=== PATIENT | female | born 1965 | race Caucasian/White ===

== ENCOUNTER → 2019-07-18 12:04 | Outpatient (BNVA) | payer OTHER, SELFPAY | PROVIDERS: Family Provider Family Medicine; Visit Provider Emergency Medicine | DX: J11.1 Influenza due to unidentified influenza virus with other respiratory manifestations (principal) | CPT/HCPCS: 87804 ==

== ENCOUNTER 2019-08-12 16:02 | Outpatient (CLI) | payer OTHER, SELFPAY ==
--- NOTE | 2019-08-12 | XR_ITS ---
WS: [id number] CHEST 2 VIEWS HISTORY: ASTHMA EXACERBATION COMPARISON: 08/12/2013 Lungs: New bronchial and interstitial thickening in the lower lung samuels. Minimal change since the p rior study. No consolidation or fluid overload. No pleural effusion. Cardiac size: Normal. Mediastinum/Aorta: Normal mediastinum. Bones: Normal. XR/XR chest 2V* [id number] IMPRESSION: Mild interstitial and bronchial wall thickening in the lower lung samuels. New s sindhu 08/12/2013. Probably on the basis of mild pneumonitis or bronchitis.
== END 2019-08-12 16:03 | disposition home or self-care (01) ==
PROVIDERS: Family Provider Family Medicine; PCP Family Medicine; Visit Provider Family Medicine
DX: Z01.89 Encounter for other specified special examinations (principal)

== ENCOUNTER 2019-09-27 12:39 | Outpatient (CLI) | payer OTHER, SELFPAY ==
[2019-09-27 13:06] LABS: Basophils # 0.1 10^3/uL (0.0-0.1); Basophils % 0.8 %; Eosinophils # 0.2 10^3/uL (0.0-0.8); Eosinophils % 2.9 %; Hematocrit 44.7 % (37.0-47.0); Hemoglobin 13.9 g/dL (11.5-15.3); Lymphocytes # 1.7 10^3/uL (0.8-4.8); Lymphocytes % 22.7 %; Mean Corpuscular HGB Conc 31.1 g/dL (30.0-36.0); Mean Corpuscular Hemoglobin 28.5 pg (28.0-34.0); Mean Corpuscular Volume 91.6 fL (81-99); Mean Platelet Volume 10.9 fL (7.4-10.4); Monocytes # 0.6 10^3/uL (0.2-0.9); Monocytes % 7.3 %; Nucleated Red Blood Cells % 0 %; Platelet Count 317 10^3/cmm (130-400); Red Blood Count 4.88 10^6/uL (4.1-5.3); Red Cell Distribution Width 13.4 % (12.1-15.1); White Blood Count 7.6 10^3/uL (4.0-10.0)
[2019-09-28 14:41] LABS: Cat Dander (E1) Ige <0.10 kU/L; Cat Dander Class 0; Dog Dander (E5) Ige <0.10 kU/L; Dog Dander Class 0; Immunoglobulin E 57 kU/L (<OR=114)
[2019-09-29 16:02] LABS: Bermuda Class 0; Bermuda Grass (G2) Ige <0.10 kU/L; Johnson Grass (G10) Ige <0.10 kU/L; Johnson Grass Cl 0; June Grass Class 0/1; June Grass(Kentucky Blue) (G8) 0.28 kU/L; Meadow Fescue (G4) Ige 0.34 kU/L; Meadow Fescue Class 0/1; Orchard Grass (Cocksfoot) (G3) 0.15 kU/L; Perennial Rye Grass (G5) Ige 0.28 kU/L; Perennial Rye Grass Class 0/1; Sweet Vernal Class 0/1; Sweet Vernal Grass (G1) Ige 0.26 kU/L; Timothy Grass (G6) Ige 0.23 kU/L; Timothy Grass Class 0/1
[2019-10-01 15:26] LABS: D. Farinae Class 0/1; Dermatophagoides Class 0/1; Dermatophagoides Farinae (D2) 0.13 kU/L; Dermatophagoides Pteronyssinus 0.14 kU/L; House Dust (Greer) (H1) Ige <0.10 kU/L; House Dust (Hollister- Stier) <0.10 kU/L; House Dust Class 0
== END 2019-09-27 12:40 | disposition home or self-care (01) ==
PROVIDERS: Family Provider Family Medicine; PCP Family Medicine; Visit Provider Internal Medicine Critical Care Medicine
DX: J45.909 Unspecified asthma, uncomplicated (principal)
CPT/HCPCS: 36415; 82785; 85025; 86003

== ENCOUNTER 2019-10-05 12:31 | Outpatient (CLI) | payer OTHER, SELFPAY ==
--- NOTE | 2019-10-05 | MR_ITS ---
WS: [id number] MRI NECK WITH CONTRAST TECHNIQUE: Noncontrast axial T1, axial T2 FSE fat sat, coronal T2 fat sat, coronal T1, coronal T1 fat sat, sagittal T2 fat sat, plus contrast enhanced coronal, sagittal, and axial T1 fat sat images obta ined. CLINICAL INFORMATION: SOFT TISSUE MASS COMPARISON: Neck ultrasound April 19, 2019 FINDINGS: Palpable markers lower neck bilaterally. No evidence of pathologic subcutaneous mass or lesion in the lower neck bilaterally. No abnormal fluid collections. No lymphadenopathy in the area of concern. In the right lower neck deep to the palpable marker are a few prominent vessels and external jugular ve in. This may correspond to the palpable abnormality. Similar less prominent vessels on the left side. Submandibular glands are normal. Normal parotid glands. A few prominent submandibular lymph nodes not pathologically enlarged likely reactive largest in the left measuring 9 mm. No cervical lymphadenopa thy. Visualized posterior nasopharynx is normal. Dental artifact degrades images in the posterior mookie opharynx. Normal palatine tonsils. No evidence of supraglottic or glottic mass. Normal posterior cassandra a. Mild disc bulging cervical spine at C5-C6. MR/MR orbit face neck wo/w* [id number] IMPRESSION: 1. No evidence of pathologic mass or lesion in the area of concern lower neck bilaterally. A few prominent vessels in these areas, external jugular vein, nor mal in appearance. 2. No cervical lymphadenopathy. A few prominent submandibular lymph nodes like ly reactive. 3. Normal salivary glands. 4. No evidence of supraglottic or glottic mass.
== END 2019-10-05 12:32 | disposition home or self-care (01) ==
LOC: RADSHAW 12:40
PROVIDERS: Family Provider Family Medicine; PCP Family Medicine; Visit Provider Family Medicine
DX: R22.1 Localized swelling, mass and lump, neck (principal)
CPT/HCPCS: 70543; A9579

== ENCOUNTER 2019-12-01 09:20 | Outpatient (CLI) | payer OTHER, SELFPAY ==
--- NOTE | 2019-12-01 09:28 | CT_ITS ---
WS: [id number] CT ABDOMEN AND PELVIS WITH CONTRAST HISTORY: LLQ PAIN ACUTE TECHNIQUE: Imaging performed of the abdomen and pelvis with IV contrast. Single phase imaging of the abdomen. Coronal and sagittal reformats are submitted. All CT scans at [facility] use at least one of these dose optimization techniques: automated exposure control; mA and/or kV adjustment per patient size (includes targeted exams where dose is matched to clinical indication); or iterativ e reconstruction. IV CONTRAST: Omnipaque 300; 95 mL IV. Oral contrast: No DLP: 1126.37 mGycm COMPARISON: 12/10/2015 Lower thorax: Subsegmental atelectasis at the LEFT lung base. Heart is normal size. No hiatal hernia. Liver/biliary system: Stable 5 mm cyst superior liver. No hepatic mass or bile duct dilatation. Gallbladder: Status post cholecystectomy. Pancreas: Normal. Spleen: Normal. Adrenal glands: Normal. Right kidney: Normal. Left kidney: Normal. Aorta: Normal. Lymphadenopathy: Subcentimeter retroperitoneal lymph nodes. No adenopathy. Free fluid: None. GI tract: The appendix is not identified. Mild fluid distention of the colon. Focal area of moderate inflammation involving the descending colon at the level of the iliac crest with adjacent diverticula . Most consistent for an episode of acute diverticulitis. Epiploic appendagitis may appear similar. T here are numerous sigmoid diverticula with diffuse chronic wall thickening of the sigmoid. Minimal fl uid distention of the proximal small bowel. No obstructive pattern. Abdominal wall: Fat-containing umbilical hernia. Pelvis: Normal. Bones: Degenerative disc disease at L5-S1. CT/CT abdomen pelvis w con* [id number] IMPRESSION: 1. Acute descending colon diverticulitis. No abscess. Differential includes se lf limiting epiploic appendagitis. 2. Chronic sigmoid diverticulosis. 3. No free air or ascites. 4. Prior cholecystectomy.
[2019-12-01] MEDS: iohexol 300 mg/mL 100 mL Btl IV (10:18)
== END 2019-12-01 09:21 | disposition home or self-care (01) ==
LOC: RADWPI 09:26
PROVIDERS: Family Provider Family Medicine; PCP Family Medicine; Visit Provider Family Medicine
DX: R10.32 Left lower quadrant pain (principal); K57.92 Diverticulitis of intestine, part unspecified, without perforation or abscess without bleeding; K57.30 Diverticulosis of large intestine without perforation or abscess without bleeding
CPT/HCPCS: 74177; Q9967

== ENCOUNTER 2020-03-06 12:00 | Outpatient (CLI) | payer OTHER, SELFPAY | END 2020-03-06 12:01 | disposition home or self-care (01) | LOC: SLEEP 03-07 15:31 | PROVIDERS: PCP Family Medicine; Visit Provider Internal Medicine Critical Care Medicine | DX: G47.10 Hypersomnia, unspecified (principal) | CPT/HCPCS: G0399 ==

== ENCOUNTER → 2020-04-21 16:51 | Outpatient (BNVA) | payer OTHER, SELFPAY | PROVIDERS: PCP Family Medicine; Visit Provider Emergency Medicine | DX: R68.89 Other general symptoms and signs (principal); J02.9 Acute pharyngitis, unspecified | CPT/HCPCS: 87071; 87400; 87880 ==

== ENCOUNTER 2020-05-05 06:29 | Day surgery (SDC) | payer OTHER, SELFPAY ==
[2020-05-05] MEDS: sodium chloride 0.9% 1,000 ML 30 ML IV (07:05)
[2020-05-05 07:08] LABS: Glucose Point of Care 103 mg/dL (70-110)
--- NOTE | 2020-05-05 07:20 | PM.OPSURHP ---
Providers/Chief Complaint Admitting Physician: Tip Becker Primary Care Provider: Marcellus Snowden MD Chief Complaint: colonoscopy History of Present Illness Adriana Echeverria is a 55 year old female who presents today for a screening colonoscopy. She has a uncle who had colon cancer but otherwise has no other family members with a history of colon cancer. I saw her in my office earlier this year and we discussed the risks and alternatives of a colonoscopy at that time. Review of Systems General: Reports: 10 or more systems reviewed and unremarkable except in HPI and below Const: Denies: fever(s) Card: Denies: chest pain or irregular heart rhythm Resp: Denies: dyspnea Medications/Allergies Home Medications Medication Instructions Recorded Confirmed Last Taken Type albuterol sulfate 90 mcg/actuation 2 inh INHALATION Q4H PRN each 07/18/19 05/05/20 05/04/20 History breath activated powder inhaler,sensor escitalopram oxalate 20 mg tablet 20 mg PO DAILY 07/18/19 05/05/20 05/04/20 History levothyroxine 100 mcg tablet 100 mcg PO DAILY 07/18/19 05/05/20 05/05/20 History montelukast 10 mg tablet 10 mg PO DAILY 07/18/19 05/05/20 05/04/20 History simvastatin 40 mg tablet 40 mg PO DAILY 07/18/19 05/05/20 05/04/20 History metformin 500 mg tablet 500 mg PO DAILY 09/27/19 05/05/20 05/04/20 History azelastine 137 mcg (0.1 %) nasal See Rx Instructions .ROUTE 02/22/20 05/05/20 05/04/20 Rx spray aerosol .COMPLEX #30 ml tiotropium bromide 2.5 See Rx Instructions .ROUTE 02/22/20 05/05/20 05/04/20 Rx mcg/actuation mist for inhalation .COMPLEX #4 gm Symbicort 160 mcg-4.5 See Rx Instructions .ROUTE 04/21/20 05/05/20 05/04/20 Rx mcg/actuation HFA aerosol inhaler .COMPLEX #10.2 g NS tizanidine 4 mg PO BEDTIME 05/03/20 05/05/20 05/04/20 History Allergies Allergy/AdvReac Type Severity Reaction Status Date / Time No Known Allergies Allergy Verified 05/05/20 06:47 PFSH PFSH: Medical History Asthma Depression H/O: hypothyroidism Hyperlipidemia Surgical History H/O sinus surgery Previous back surgery S/P cholecystectomy Social History Smoking and tobacco status: never smoked Second hand smoke exposure: No Alcohol intake: never Lives independently: Yes Household members: spouse Housing: House Marital status: Current occupational status: employed Current occupation: Teacher Current occupational exposures/hazards: No Pets and animals: Yes History of recent travel: No Current gender identity: Female Dietary Habits: Caffeine: Yes Caffeine intake frequency: carbonated beverages, coffee and tea Vital Signs Weight: Weight last 48 hrs Weight 200 lb Physical Exam Const: COMMON NORMALS: no acute distress and patient oriented x3 GENERAL APPEARANCE: cooperative, comfortable and well developed HENMT: COMMON NORMALS: normocephalic and moist oral mucous membranes HEAD & SCALP: normocephalic Chest: COMMONS NORMALS: normal inspection of the chest Resp: COMMON NORMALS: normal respiratory effort and clear to auscultation bilaterally AUSCULTATION: clear to auscultation bilaterally Cardio: COMMON NORMALS: regular rate, regular rhythm, No gallops present (Cardio), No murmurs present (Cardio) and No rub (Cardio) RATE: regular rate RHYTHM: regular rhythm Extremity: COMMON NORMALS: normal to inspection Neuro: COMMON NORMALS: patient oriented x3 and no focal motor deficits Skin: COMMON NORMALS: no rashes or lesions noted GENERAL SKIN EXAM: no rashes or lesions noted A&P Assessment and plan (1) Colon cancer screening: We discussed the risks of bleeding, perforation, and sedation. She and her had no further questions and wished to proceed. Status: Acute Coding Level of Care Code Acute Manager Android for [facility] Fwd Diagnoses Colon cancer screening Z12.11
--- NOTE | 2020-05-05 07:22 | ANES.PREANE2 ---
Pre-Anesthetic Assessment Pre-Anesthetic Assessment: Height/Weight: Height 1.6 m Weight 90.718 kg Proposed Procedure: Operation Date: 05/05/20 07:30 Proposed Procedures p Colonoscopy Z12.11 [id number](Not Applicable) - Tip Becker MD Was Beta Nick taken within 24 hours: N/A Last intake: Intake Last Liquid Date 05/04/20 Last Liquid Time 20:00 Last Solid Date 05/03/20 Last Solid Time 20:00 Social: Social History: No alcohol and No tobacco Exam: Pre-Anes Outpt Exam: alert, oriented x 3, clear to auscultation bilaterally and regular rate & rhythm Airway: Submandibular: WNL Cervical ROM: WNL MP: 2 Dentition: Full Pulmonary: Pulmonary: Asthma CV/HEM: CV/HEM: None reported : : None reported Hepatic: Hepatic: None reported GI: GI: None reported Metabolic: Metabolic: DM Musc/skel: Musc/skel: None reported Anesthetic Plan: ASA status: 2 Anesthesia: MAC Risk of > 500 ml blood loss (7ml/kg in children): No Meds/Allergies Current Medications: Current Medications Generic Name Dose Route Start Last Admin Trade Name Freq PRN Reason Stop Dose Admin Sodium Chloride 1,000 mls @ 30 ml s/hr 05/05/20 07:00 05/05/20 07:05 Sodium Chloride 0.9% IV 05/06/20 06:59 30 mls/hr .Q24H WAQAS Administration PFSH Anesthesia PFSH: Medical History (Updated 05/05/20 @ 07:23 by Tip Becker MD) Asthma Depression H/O: hypothyroidism Hyperlipidemia Surgical History H/O sinus surgery Previous back surgery S/P cholecystectomy Social History Smoking and tobacco status: never smoked Second hand smoke exposure: No Alcohol intake: never Lives independently: Yes Household members: spouse Housing: House Marital status: Current occupational status: employed Current occupation: Teacher Current occupational exposures/hazards: No Pets and animals: Yes History of recent travel: No Current gender identity: Female Data Anesthesia Other Labs: Laboratory Results - last 48 hr 05/05/20 07:02 POC Glucose 103 Cardiac Studies: No Data to Display
[2020-05-05 07:47] VITALS: BP 98/63; PULSE 72; RESP 18; TEMP 36.2; O2SAT 96
--- NOTE | 2020-05-05 08:06 | ANE.PACU2 ---
Inpatient post-anesthesia follow up: Airway intact: Yes Vital signs: Temperature 97.2 F Pulse Rate 72 Respiratory Rate 18 Blood Pressure 98/63 Pulse Oximetry 96 Oxygen Delivery Me thod Room Air Oxygen Flow Rate Fraction of Inspir ed Oxygen Hydration adequate: Yes Nausea and vomiting: No Pain level: 1 Mental status: Baseline
== END 2020-05-05 08:18 | disposition home or self-care (01) ==
PROVIDERS: PCP Family Medicine; Visit Provider Family Medicine
PROC: 0DJD8ZZ Inspection of Lower Intestinal Tract, Via Natural or Artificial Opening Endoscopic (ICD-10-PCS; CPT 45378; principal; 2020-05-05 07:30)
DX: Z12.11 Encounter for screening for malignant neoplasm of colon (principal); Z80.0 Family history of malignant neoplasm of digestive organs; J45.909 Unspecified asthma, uncomplicated; F32.9 Major depressive disorder, single episode, unspecified; E03.9 Hypothyroidism, unspecified; E78.5 Hyperlipidemia, unspecified; E11.9 Type 2 diabetes mellitus without complications
CPT/HCPCS: 12345; 36416; 45378; 82962; J2704; J7030

== ENCOUNTER 2022-11-25 11:52 | Oncology outpatient (recurring) (ONCR) | payer OTHER, SELFPAY ==
[2022-11-25 12:57] VITALS: BP 141/88; PULSE 92; TEMP 36.6; O2SAT 95
[2022-11-25 13:30] VITALS: BP 152/91; PULSE 85; TEMP 36.6; O2SAT 94
== END 2022-11-29 23:59 | disposition home or self-care (01) ==
PROVIDERS: PCP Family Medicine; Visit Provider Internal Medicine Pulmonary Disease
DX: J45.50 Severe persistent asthma, uncomplicated (principal); Z79.899 Other long term (current) drug therapy
CPT/HCPCS: 96372

== ENCOUNTER 2023-04-03 08:44 | Outpatient (CLI) | payer OTHER, SELFPAY ==
--- NOTE | 2023-04-03 08:55 | CT_ITS ---
WS: [id number] CT ABDOMEN PELVIS TECHNIQUE: Contrast-enhanced CT of the abdomen and pelvis with coronal and sagittal reformatted image s. CLINICAL INFORMATION: LLQ pain COMPARISON: None. DLP: 851.[address] scans at [facility] use at least one of these dose optimization techniques: automated e xposure control; mA and/or kV adjustment per patient size (includes targeted exams where dose is matc hed to clinical indication); or iterative reconstruction. FINDINGS: Thickening with inflammatory stranding and edema sigmoid colon LEFT lower quadrant compatible with [facility] [place] diverticulitis. Few small surrounding locules of air with a small amount of surrounding fluid and enhancement. Small mount of fluid in the LEFT lower pelvis. Findings compatible with microperforatio n. No drainable abscess or fluid collection. Mild diffuse fatty filtration of the liver. Cholecystectomy clips. Normal GE junction. Tiny incidenta l hepatic cysts. Slight subsegmental atelectasis in the lung bases. Normal pancreatic parenchymal enh ancement. Normal portal vein and splenic vein. Adrenal glands are normal. No hydronephrosis in either kidney. Normal caliber abdominal aorta. Celiac and SMA are patent. Disc space narrowing worse at L5- S1. IMPRESSION: 1. Acute diverticulitis LEFT lower quadrant with microperforation and a small amount of surrounding fluid. Recommend interval follow-up after therapy. 2. No drainable fluid collection or abscess. 3. No other acute findings. Notified Marcellus Snowden MD at 04/03/2023 10:51 AM.
[2023-04-03] MEDS: iohexol 350 mg/mL 500 mL Btl (per mL) IV (09:02)
[2023-04-03] MEDS: iohexol 350 mg/mL 500 mL Btl (per mL) PO (09:02)
== END 2023-04-03 08:45 | disposition home or self-care (01) ==
LOC: RAD 08:44
PROVIDERS: PCP Family Medicine; Visit Provider Family Medicine
DX: K57.92 Diverticulitis of intestine, part unspecified, without perforation or abscess without bleeding (principal); R10.32 Left lower quadrant pain
CPT/HCPCS: 74177; Q9967

== ENCOUNTER 2023-04-14 16:27 | Outpatient (CLI) | payer OTHER, SELFPAY ==
--- NOTE | 2023-04-14 16:30 | CT_ITS ---
WS: [id number] CT ABDOMEN AND PELVIS WITH CONTRAST HISTORY: ABDOMINAL PAIN/ F/U DIVERTICULITIS TECHNIQUE: Imaging performed of the abdomen and pelvis with IV contrast. Single phase imaging of the abdomen. Coronal and sagittal reformats are submitted. All CT scans at [facility] use at [facility] one of these dose optimization techniques: automated exposure control; mA and/or kV adjustment per patient size (includes targeted exams where dose is matched to clinical indication); or iterative re construction. IV CONTRAST: Omnipaque 350; 100 mL IV. Oral contrast: Yes. DLP: 797.38 mGy.cm COMPARISON: 04/03/2023 Lower thorax: Lung bases are clear. Heart is normal size. No hiatal hernia. Liver/biliary system: Normal size liver. There are a few scattered low-attenuation masses which are p robably cysts. The liver is enlarged. No bile duct dilatation. Normal portal vein. Gallbladder: Cholecystectomy. Pancreas: Normal size pancreas and pancreatic duct. No adjacent inflammation. Spleen: Normal size spleen. No mass or infarct. Adrenal glands: Normal. Right kidney: Normal. Left kidney: Normal. Aorta: Normal. Lymphadenopathy: Small retroperitoneal lymph nodes below the level of the renal veins are reidentifie d. These lymph nodes are slightly smaller in size as compared to the prior study. Largest lymph node 8 mm. Free fluid: None. GI tract: Recently described acute distal colonic diverticulitis has moderately improved. There is st ill wall thickening with narrowing of the lumen and numerous diverticula and pericolonic edema. No ab scess. No free air. Fluid adjacent to the colon has resolved. Numerous diverticula in the descending and sigmoid colon. No obstruction. Normal appendix. Abdominal wall: Fat containing umbilical hernia. Pelvis: Prior hysterectomy. Negative urinary bladder. Bones: Mild disc space narrowing and desiccation at L5-S1. IMPRESSION: 1. Moderate interval improvement of the distal colon acute diverticulitis since 04/03/2023. There is still narrowing of the lumen and mild acute inflammatory changes. No abscess or free air. The free fl uid has resolved. 2. There are small adjacent lymph nodes and retroperitoneal lymph nodes which may be reactive. If co lonoscopy has not been recently performed this should be obtained to exclude an underlying neoplasm b ut thought less likely. 3. Significant chronic diverticulosis in the distal colon.
[2023-04-14] MEDS: iohexol 350 mg/mL 500 mL Btl (per mL) IV (17:37)
[2023-04-14] MEDS: iohexol 350 mg/mL 500 mL Btl (per mL) PO (17:37)
== END 2023-04-14 16:28 | disposition home or self-care (01) ==
PROVIDERS: PCP Family Medicine; Visit Provider Family Medicine
DX: K57.32 Diverticulitis of large intestine without perforation or abscess without bleeding (principal); K57.30 Diverticulosis of large intestine without perforation or abscess without bleeding
CPT/HCPCS: 74177; Q9967

== ENCOUNTER → 2024-11-29 08:36 | Outpatient (BNVA) | payer OTHER, SELFPAY | PROVIDERS: PCP Family Medicine; Visit Provider Podiatrist Foot & Ankle Surgery | DX: M79.672 Pain in left foot (principal); M72.2 Plantar fascial fibromatosis | CPT/HCPCS: 73630 ==

== ENCOUNTER 2025-01-09 10:20 | Inpatient (IN) | payer OTHER, SELFPAY ==
[2025-01-09] VITALS (9 sets, daily range): BP systolic 98–143; BP diastolic 65–89; PULSE 64–88; RESP 16–19; TEMP 36.8; O2SAT 95–98
--- OUTSIDE RECORDS SUMMARY | 2025-01-09 10:23 | XMS_ITS | Encounter Summary ---
Author Organization [facility] Address [address] [place] [address] Care Team Providers Care Department Store Manager Name Role Phone Unavailable Primary Care Provider Unavailabl e Reason for Referral * Outpatient Services (Routine) - Closed Specialty Diagnoses / Procedures Referred By Contac t Referred To Contact Diagnoses Low back pain Sciatica Procedures MRI LUMBAR WO CONTRAST Marcellus Snowden MD [address] [address] Phone: tel: fax: Referral ID Status Reason Start Date Expiration Date Visits Re quested Visits Authorized [id number] Closed 10/14/2012 11/14/2013 1 1 Encounter Details Date Type Department Care Team (Late st Contact Info) Description 10/14/2012 Ancillary Orders [facility] Centralized Scheduling [address] [facility] [address] [place] [address] Marcellus Snowden MD [address] [address] Low back pain (Primary Dx); Sciatica Social History Tobacco Use Types Packs/Day Years Used Date Smoking Tobacco: Never Assessed Comments Unknown Sex and Gender Information Value Date Recorded Sex Assigned at Not on file 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 Exam: MRI LUMBAR WO CONTRAST Date/Time of Exam: October 23, 2012 10:32:00 AM Reason For Exam: Lumbago. Technique: MRI of the lumbar spine was performed without the administration of intravenous contrast. No comparison study is available. No significant focal bony lesion or acute fracture is seen. Alignment is normal. L1-L2 and L2-L3: No significant abnormality. L3-L4: Left foraminal annular tear. L4-L5: Tiny disc bulge and posterior annular tear. L5-S1: Mild disc height loss, moderate degenerative endplate changes with a tiny disc bulge. Status post left laminotomy. Impression: Postoperative changes but no spinal stenosis or nerve root compression. ama - uploaded from [email or web address] - Narrative Procedure Note Alvin Cruz MD - 10/23/2012 IMPRESSION IMPRESSION: See report below. Exam: MRI LUMBAR WO CONTRAST Date/Time of Exam: October 23, 2012 10:32:00 AM Reason For Exam: Lumbago. Technique: MRI of the lumbar spine was performed without the administration of intravenous contrast. No comparison study is available. No significant focal bony lesion or acute fracture is seen. Alignment is normal. L1-L2 and L2-L3: No significant abnormality. L3-L4: Left foraminal annular tear. L4-L5: Tiny disc bulge and posterior annular tear. L5-S1: Mild disc height loss, moderate degenerative endplate changes with a tiny disc bulge. Status post left laminotomy. Impression: Postoperative changes but no spinal stenosis or nerve root compression. ama - uploaded from [email or web address] - us Marcellus Snowden MD MR ORDERABLES Final Result documented in this encounter Visit Diagnoses Diagnosis Low back pain- Primary Lumbago Sciatica Low back pain Lumbago Sciatica documented in this encounter
--- OUTSIDE RECORDS SUMMARY | 2025-01-09 10:23 | XMS_ITS | Clinical Summary ---
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 Gender Identity Not on file Sexual Orientation Not on file Plan of Treatment Health Maintenance Due Date Last Done Comments DTAP/TDAP/TD VACCINES (1 - Tdap) 02/21/1983 HPV/Cotest (21-29) 02/21/1985 CERVICAL CANCER SCREENING 02/21/1994 HPV/Cotest (30-65) 02/21/1994 PAP SMEAR 02/21/1994 BREAST CANCER SCREENING 2004 COLORECTAL SCREENING 02/21/2009 Colorectal Cancer Screening 02/21/2009 FIT-DNA Q 3 years 02/21/2009 FIT/FOBT Q 1 year 02/21/2009 Flex Sig/CT Colonography Q 5 years 02/21/2009 ZOSTER VACCINE (1 of 2) 02/21/2014 INFLUENZA VACCINE (#1) 2024 RSV VACCINE (60+ or ) (1 - 1-dose 75+ series) 02/21/2039 HEPATITIS B VACCINES Aged Out No long er eligible based on patient's age to complete this topic Insurance [employer]
--- OUTSIDE RECORDS SUMMARY | 2025-01-09 10:23 | XMS_ITS | Clinical Summary ---
Author Organization [facility] Address [address] [place]: [place] [address] Care Team Providers Care Patient Monitor Name Role Phone Marcellus Snowden MD Primary Care Provider [phone] Allergies Active Allergy Reactions Criticality Noted Date Comments Metformin Diarrhea Medium 05/14/2023 Medications albuterol sulfate 90 mcg/actuation metered powder inhaler Q6H 2 Active montelukast (SINGULAIR) 10 mg tablet daily. 3 Active simvastatin (ZOCOR) 40 mg tablet Take 40 mg by mouth daily at bedtime. 3 Active budesonide (PULMICORT RESPULE) 0.5 mg/2 mL Suspension for Nebulization INHALE THE CONTENTS OF 1 VIAL VIA NEBULIZER TWICE DAILY Active budesonide-formo teroL (SYMBICORT) 160-4.5 mcg/actuation HFA Aerosol Inhaler INHALE 2 PUFFS BY MOUTH EVERY 12 HOURS Active escitalopram oxalate (LEXAPRO) 20 mg tablet Take 1 Tablet by mouth daily. Active levothyroxine 100 mcg tablet TAKE 1 TABLET BY MOUTH EVERY 6 DAYS, THEN TAKE 1.5 TABLETS 1 DAY OF THE WEEK; needs yearly checkup and TSH 3 Active mepolizumab (Nucala) 100 mg/mL Syringe Inject 1 mL every month by subcutaneous route. Active tiotropium (SPIRIVA RESPIMAT) 2.5 mcg/actuation Mist INHALE 2 PUFFS BY MOUTH EVERY MORNING Active tiZANidine (ZANAFLEX) 4 mg Tablet Take 4 mg by mouth daily at bedtime. 3 Active Active Problems No known active problems Immunizations Immunization Administration Dates Next Due ([employer])(12 YR UP) COVID-19 VACCINE - EMERGENCY USE AUTHORIZATION, MRNA, [id number](PF) 30 MCG/0.3 ML IM SUSP 01/15/2021,12/25/2020 Family History Medical History Relation Name Comments Colon Cancer Other Relation Name Status Comments Other Social History Tobacco Use Types Packs/Day Years Used Date Smoking Tobacco: Never Smokeless Tobacco: Never Tobacco Cessation:Counseling Given: Not Answered Alcohol Use Standard Drinks/Week Comments Not Currently 0 (1 standard drink = 0.6 oz pur e alcohol) Comments Unknown Sex and Gender Information Value Date Recorded Sex Assigned at Female 08/20/2023 12:25 PM CDT Legal Sex Female 5:18 PM INSURANCE SALESMAN Gender Identity Female 08/20/2023 12:25 PM CDT Sexual Orientation Straight 08/20/2023 12 :25 PM CDT Last Filed Vital Signs Vital Sign Reading Time Taken Comments Blood Pressure 118/76 08/06/2023 11:35 AM INSURANCE SALESMAN Pulse 76 08/06/2023 11:35 AM INSURANCE SALESMAN Temperature - - Respiratory Rate 16 08/06/2023 11:35 AM INSURANCE SALESMAN Oxygen Saturation 97% 08/06/2023 11:35 AM INSURANCE SALESMAN Inhaled Oxygen Concentration - - Weight 90.7 kg (200 lb) 08/04/2023 8:10 AM INSURANCE SALESMAN Height 160 cm (5' 3 ) 08/04/2023 8:10 AM INSURANCE SALESMAN Body Mass Index 35.43 08/04/2023 8:10 AM INSURANCE SALESMAN Plan of Treatment Health Maintenance Due Date Last Done Comments HPV/Cotest (21-29) 02/21/1985 CERVICAL CANCER SCREENING 02/21/1994 HPV/Cotest (30-65) 02/21/1994 PAP SMEAR 02/21/1994 BREAST CANCER SCREENING 2004 FIT-DNA Q 3 years 02/21/2009 FIT/FOBT Q 1 year 02/21/2009 Flex Sig/CT Colonography Q 5 years 02/21/2009 ZOSTER VACCINE (2 of 2) 10/05/2021 08/10/2021 COVID-19 Vaccine (3 - 2023-2 5 season) 2024 01/15/2021, 12/25/2020 RSV VACCINE (60+ or ) (1 - Risk 60-74 years 1-dose series) 2024 INFLUENZA VACCINE (#1) 2024 12/18/2020 DTAP/TDAP/TD VACCINES (2 - T d or Tdap) 10/05/2028 10/05/2018 COLORECTAL SCREENING 08/05/2033 08/06/2023, 08/06/2023 Colorectal Cancer Screening 08/05/2033 HEPATITIS B VACCINES Aged Out No long er eligible based on patient's age to complete this topic Procedures Procedure Name Priority Date/Time Associated Diagnosis Comments COLONOSCOPY REPORT 08/06/2023 11 :27 AM INSURANCE SALESMAN from Last 3 Months or Most Recently Relevant to Health Maintenance Results * COLONOSCOPY REPORT (08/06/2023 11:27 AM INSURANCE SALESMAN) Narrative Procedure Note Kurtis Manuel MD - 08/06/2023 11:[address] [facility] GI Patient Name: Itzel Echeverria Procedure Date: 08/06/2023 Date of : 1965 Admit Type: Outpatient Age: 58 Attending MD: Kurtis Manuel , , Procedure: Colonoscopy Indications: Follow-up of diverticulitis Providers: Kurtis Manuel Referring MD: Marcellus Snowden MD Medicines: Fentanyl 75 micrograms IV, Midazolam 5 mg IV Complications: No immediate complications. Procedure: After I obtained informed consent, the scope was passed under direct vision. Throughout the procedure, the patient's blood pressure, pulse, and oxygen saturations were monitored continuously. The Colonoscope was introduced through the anus and advanced to the cecum, identified by appendiceal orifice and ileocecal valve. The colonoscopy was performed without difficulty. The patient tolerated the procedure well. The quality of the bowel preparation was evaluated using the BBPS ([place] Bowel Preparation Scale) with scores of: Right Colon = 3, Transverse Colon = 3 and Left Colon = 3 (entire mucosa seen well with no residual staining, small fragments of stool or opaque liquid). The total BBPS score equals 9. Estimated Blood Loss: Estimated blood loss was minimal. Findings: A 5 mm polyp was found in the sigmoid colon. The polyp was sessile. The polyp was removed with a cold snare. Resection and retrieval were complete. Multiple medium-mouthed and small-mouthed diverticula were found in the sigmoid colon and ascending colon. The exam was otherwise without abnormality on direct and retroflexion views. Moderate Sedation: Moderate (conscious) sedation was administered by the nurse and supervised by the endoscopist. The following parameters were monitored: oxygen saturation, heart rate, blood pressure, respiratory rate, EKG, adequacy of pulmonary ventilation, and response to care. Total physician intraservice time was 15 minutes. Impression: - One 5 mm polyp in the sigmoid colon, removed with a cold snare. Resected and retrieved. - Diverticulosis in the sigmoid colon and in the ascending colon. - The examination was otherwise normal on direct and retroflexion views. Recommendation: - Await pathology results. - Thank you for the referral. Kurtis Manuel, 08/06/2023 11:27:29 AM Number of Addenda: 0 Note Initiated On: 08/06/2023 11:03 AM Scope Withdrawal Time 0 hours 7 minutes 39 seconds Scope In: 11:08:35 AM Scope Out: 11:18:11 AM [id number] [place] Kurtis Manuel MD GI PROCEDURE ORDERABLES Final Result from Last 3 Months or Most Recently Relevant to Health Maintenance Insurance [facility] Advance Directives For more information, please contact: [phone] * Full Code (Latest Code Status on File) Date Activated Date Inactivated Comments 08/06/2023 10:44 AM 08/06/2023 1:52 PM Care Teams Patient Monitor Relationship Specialty Start Date End Date Marcellus Snowden MD [address] [phone] PCP - General Family Practice 12/25/20
--- NOTE | 2025-01-09 10:34 | CTR_ITS ---
PROCEDURE INFORMATION: Exam: CT Abdomen And Pelvis With Contrast Exam date and time: 01/09/2025 11:17 AM Age: 59 years old Clinical indication: Abdominal pain; Generalized; Prior surgery; Surgery date: 6+ months; Surgery type: Laproscopic; Additional info: Abd pain TECHNIQUE: Imaging protocol: Computed tomography of the abdomen and pelvis with contrast. Radiation optimization: All CT scans at this facility use at least one of these dose optimization techniques: automated exposure control; mA and/or kV adjustment per patient size (includes targeted exams where dose is matched to clinical indication); or iterative reconstruction. Contrast material: OMNI 350; Contrast volume: 100 ml; Contrast route: INTRAVENOUS (IV); COMPARISON: CT abdomen pelvis w con* [id number] 04/14/2023 5:30 PM RADIATION DOSE METRICS: Total DLP (mGy-cm): 1000.71 FINDINGS: Liver: There is an unchanged simple hepatic cyst. No suspicious hepatic lesions. Gallbladder and biliary ducts: Postoperative changes of cholecystectomy. No significant biliary ductal dilatation. Pancreas: Normal. No ductal dilation. Spleen: Normal. No splenomegaly. Adrenal glands: Normal. No mass. Kidneys and ureters: Normal. No hydronephrosis. Stomach and bowel: There is colonic diverticulosis with moderate mural thickening and pericolonic stranding involving the proximal sigmoid colon consistent with acute diverticulitis. No perforation or pericolonic abscess. No bowel obstruction. Appendix: The appendix is within normal limits. Intraperitoneal space: Unremarkable. No free air. No significant fluid collection. Vasculature: Unremarkable. No abdominal aortic aneurysm. Lymph nodes: Unremarkable. No enlarged lymph nodes. Urinary bladder: Unremarkable as visualized. Reproductive: The uterus is absent Bones/joints: [id number] degenerative changes at L5-S1. No acute fracture. Soft tissues: There is a small fat containing umbilical hernia CT/CT abdomen pelvis w con* [id number] IMPRESSION: 1. Acute diverticulitis of the proximal sigmoid colon without perforation or pericolonic abscess 2. Previous cholecystectomy
--- NOTE | 2025-01-09 10:35 | W.ED.ABDPA2 ---
HPI - Abdominal Pain General: Chief Complaint: Abdominal Pain Stated Complaint: abd pain, n/d Time Seen by Provider: 01/09/25 10:32 Source: patient Mode of arrival: ambulatory Limitations: no limitations History of Present Illness: 59-year-old female states she been having left lower quadrant abdominal pain over the last 4 days. States been a sharp pain she rates an 8 out of 10. States it is worse with movement and palpation denies any fever denies any vomiting. She has had a history of diverticulitis in the past Associated Symptoms: Denies chills, diarrhea, dysuria, fever(s), nausea and vomiting Related Data Home Medications ?Medication ?Instructions ?Recorded ?Confirmed escitalopram oxalate 20 mg tablet 20 mg PO DAILY 07/18/19 12/29/24 (Lexapro) levothyroxine 100 mcg tablet 100 mcg PO DAILY 07/18/19 12/29/24 (Synthroid) simvastatin 40 mg tablet 40 mg PO DAILY 07/18/19 12/29/24 tizanidine 4 mg tablet 4 mg PO BEDTIME 05/03/20 12/29/24 albuterol sulfate 90 mcg/actuation 2 puff inhalation Q4H PRN 12/18/21 12/29/24 aerosol inhaler Previous Rx's ?Medication ?Instructions ?Recorded azelastine 137 mcg (0.1 %) nasal See Rx Instructions .Route 01/29/22 spray .COMPLEX #30 mL albuterol sulfate 2.5 mg/3 mL 2.5 mg (3 mL) inhalation Q6H #150 04/06/22 (0.083 %) solution for nebulization vials tiotropium bromide 2.5 See Rx Instructions .Route 10/23/22 mcg/actuation mist for inhalation .COMPLEX #4 grams (Spiriva Respimat) Symbicort 160 mcg-4.5 See Rx Instructions .Route 12/16/22 mcg/actuation HFA aerosol inhaler .COMPLEX #10.2 grams (budesonide-formoterol) montelukast 10 mg tablet 10 mg PO DAILY #30 tabs 07/02/23 (Singulair) mepolizumab 100 mg/mL subcutaneous 100 mg SUBCUT .q 4 weeks #1 mL 09/11/23 auto-injector (Nucala) triamcinolone acetonide 0.1 % 1 applic topical BID #30 grams 11/22/24 topical cream Allergies Allergy/AdvReac Type Severity Reaction Status Date / Time metformin Allergy ADR-Diarrhe Verified 12/29/24 08:04 a Review of Systems Const: Denies: fever(s), chills, body aches or change in appetite ENMT: Denies: throat pain or dental pain Card: Denies: chest pain Resp: Denies: dyspnea GI: Reports: abdominal pain; Denies: nausea, vomiting or diarrhea : Denies: dysuria Musc: Denies: neck pain or back pain Skin/Breast: Denies: rash Neuro: Denies: headache(s) PFSH ED PFSH: Medical History Asthma H/O: hypothyroidism Depression Hyperlipidemia Surgical History Previous back surgery S/P cholecystectomy H/O sinus surgery Social History Smoking and tobacco/nicotine status: never used tobacco/nicotine Second hand smoke exposure: No Alcohol intake: never Substance/Drug Use: never Lives independently: Yes Household members: spouse Housing: House Marital status: Current occupational status: employed Current occupation: Teacher Current occupational exposures/hazards: No Pets and animals: Yes Do you think of yourself as: Straight/Heterosexual Current gender identity: Female Physical Exam Const: COMMON NORMALS: no acute distress, patient oriented x3 and healthy appearing HENMT: COMMON NORMALS: normocephalic and atraumatic HEAD & SCALP: normocephalic and atraumatic Eye: COMMON NORMALS: Equal, round and reactive pupils present and EOMs intact bilaterally PUPIL: Yes Equal, round and reactive pupils present Neck/C-Spine: COMMON NORMALS: full ROM and supple Chest: COMMONS NORMALS: normal inspection of the chest Resp: COMMON NORMALS: normal respiratory effort Cardio: COMMON NORMALS: regular rate, regular rhythm and No murmurs present (Cardio) RATE: regular rate RHYTHM: regular rhythm GI: COMMON NORMALS: Normal to inspection, nondistended, normoactive bowel sounds present, Soft to palpation and no masses PALPATION: Yes Soft to palpation and Yes Tenderness to palpation present (GI) Details: LLQ Extremity: COMMON NORMALS: normal to inspection and full ROM Neuro: COMMON NORMALS: patient oriented x3, moves all extremities and no focal motor deficits Psych: COMMON NORMALS: mental status grossly normal, Normal thought process present and cooperative THOUGHT PROCESS: Normal thought process present Skin: COMMON NORMALS: no rashes or lesions noted and no wounds GENERAL SKIN EXAM: no rashes or lesions noted Course Vital Signs: Vital signs: Vital Signs Temperature 98.2 F 01/09/25 10:25 Pulse Rate 88 01/09/25 10:25 Respiratory Rate 16 01/09/25 10:25 Blood Pressure 143/89 01/09/25 10:25 Pulse Oximetry 97 01/09/25 10:25 Oxygen Delivery Me thod Room Air 01/09/25 10:25 MDM - Abdominal Pain Medical Decision Making Patient presents for diverticulitis likely causing her abdominal pain spoke to the hospitalist will admit at this time for IV antibiotics. Medical Records I reviewed the patient's medical records. Lab Data I reviewed the patient's lab results. 01/09/25 10:46 01/09/25 10:46 Labs/Radiology: Radiology Impressions Abdomen/Pelvis CT 01/09/25 10:34 IMPRESSION: 1. Acute diverticulitis of the proximal sigmoid colon without perforation or pericolonic abscess 2. Previous cholecystectomy Laboratory Results WBC 11.24 10^3/uL (3.29-11.43) 01/09/25 10:46 RBC 4.61 10^6/uL (3.85-5.65) 01/09/25 10:46 Hgb 13.30 g/dL (11.27-16.99) 01/09/25 10:46 Hct 41.7 % (36-47) 01/09/25 10:46 MCV 90.5 fl (85-98) 01/09/25 10:46 MCH 28.9 pg (27-33) 01/09/25 10:46 MCHC 31.9 g/dL (30-55) 01/09/25 10:46 RDW 14.0 % (12.1-15.1) 01/09/25 10:46 Plt Count 285 10^3/cmm (157-399) 01/09/25 10:46 MPV 10.4 fL (7.4-10.4) 01/09/25 10:46 Neut % (Auto) 75.5 % 01/09/25 10:46 Lymph % (Auto) 15.9 % 01/09/25 10:46 Gu[place]upe % (Auto) 7.6 % 01/09/25 10:46 Eos % (Auto) 0.4 % 01/09/25 10:46 Baso % (Auto) 0.4 % 01/09/25 10:46 Neut # (Auto) 8.50 10^3/uL (1.8-7.7) H 01/09/25 10:46 Lymph # (Auto) 1.8 10^3/uL (0.8-4.8) 01/09/25 10:46 [place]upe # (Auto) 0.9 10^3/uL (0.2-0.9) 01/09/25 10:46 Eos # (Auto) 0.0 10^3/uL (0.0-0.8) 01/09/25 10:46 Baso # (Auto) 0.0 10^3/uL (0.0-0.1) 01/09/25 10:46 Nucleated RBC % (auto) 0 % 01/09/25 10:46 Nucleated RBCs # 0.0 /100WBC 01/09/25 10:46 Sodium 137 mmol/L (136-145) 01/09/25 10:46 Potassium 3.8 mmol/L (3.5-5.1) 01/09/25 10:46 Chloride 100 mmol/L (98-107) 01/09/25 10:46 Carbon Dioxide 26 mmol/L (22-29) 01/09/25 10:46 Anion Gap 14.8 (5-19) 01/09/25 10:46 BUN 10 mg/dL (8-23) 01/09/25 10:46 Creatinine 0.6 mg/dL (0.5-0.9) 01/09/25 10:46 GFR Calculation 102.0 mL/min (90-130) 01/09/25 10:46 Glucose 101 mg/dL (65-115) 01/09/25 10:46 Calculated Osmolality 283 mOsm/kg (285-295) L 01/09/25 10:46 Calcium 8.8 mg/dL (8.5-10.5) 01/09/25 10:46 Total Bilirubin 0.4 mg/dL (0.15-1.2) 01/09/25 10:46 AST 13 U/L (0-32) 01/09/25 10:46 ALT 16 U/L (0-33) 01/09/25 10:46 Alkaline Phosphatase 117 U/L (35-105) H 01/09/25 10:46 Total Protein 7.0 g/dL (6.6-8.7) 01/09/25 10:46 Albumin 4.0 g/dL (3.5-5.2) 01/09/25 10:46 Globulin 3.0 g/dL (1.3-4.6) 01/09/25 10:46 Lipase 25 U/L (13-60) 01/09/25 10:46 Amorphous Sediment Not Reportable 01/09/25 11:07 All radiology interpretation(s) finalized by discharge Discharge Plan Discharge Patient Disposition: Admitted As Inpatient Clinical Impression: Diverticulitis Condition: Stable Coding Level of Care Code ED Ground [employer] Support for Mahin Grant
[2025-01-09 10:52] LABS: Hematocrit 41.7 % (36-47); Hemoglobin 13.30 g/dL (11.27-16.99); Mean Corpuscular HGB Conc 31.9 g/dL (30-55); Mean Corpuscular Hemoglobin 28.9 pg (27-33); Mean Corpuscular Volume 90.5 fl (85-98); Nucleated Red Blood Cells % 0 %; Platelet Count 285 10^3/cmm (157-399); Red Blood Count 4.61 10^6/uL (3.85-5.65); White Blood Count 11.24 10^3/uL (3.29-11.43)
[2025-01-09] MEDS: ondansetron 2 mg/ML SDV 2 mL 4 MG IVP (11:01)
[2025-01-09] MEDS: HYDROmorphone 0.5 MG/0.5 ML INJ 1 MG IVP ×2 (11:03→12:31)
[2025-01-09 11:12] LABS: Alanine Aminotransferase 16 U/L (0-33); Albumin Level 4.0 g/dL (3.5-5.2); Alkaline Phosphatase 117 U/L (35-105); Anion Gap 14.8 (5-19); Aspartate Amino Transferase 13 U/L (0-32); Blood Urea Nitrogen 10 mg/dL (8-23); Calcium 8.8 mg/dL (8.5-10.5); Carbon Dioxide 26 mmol/L (22-29); Chloride 100 mmol/L (98-107); Creatinine Clr Calc Pharmacy 110.6064; Globulin 3.0 g/dL (1.3-4.6); Glucose 101 mg/dL (65-115); Lipase 25 U/L (13-60); Osmolality Calculated 283 mOsm/kg (285-295); Potassium 3.8 mmol/L (3.5-5.1); Sodium 137 mmol/L (136-145); Total Protein 7.0 g/dL (6.6-8.7)
[2025-01-09] MEDS: iohexol 350 mg/mL 500 mL Btl (per mL) IV (11:26)
[2025-01-09 11:52] LABS: Glucose Urine UA Negative (Normal); Nitrate Urine Negative (Negative); Specific Gravity, Urine 1.018 (1.005-1.030)
[2025-01-09 11:57] LABS: Add Urine Microscopic? YES
[2025-01-09 12:36] LABS: Lactic Sepsis W/Reflex 1.3 mmol/L (0.5-2.2)
[2025-01-09 12:58] LABS: Procalcitonin 0.04 ng/mL (0-0.5)
--- NOTE | 2025-01-09 13:32 | PM.HP ---
Providers/Chief Complaint Admitting Physician: Epi Canela MD Primary Care Provider: Marcellus Snowden MD Chief Complaint: abd pain, n/d History of Present Illness Adriana Echeverria is a 59 year old female with past medical history of asthma, hypothyroidism, hyperlipidemia, diverticulitis with microperforation over a year ago presents to the ER today with abdominal pain more so in the left lower quadrant radiating to lower quadrant since Friday associated with diarrhea. Today is Friday. Patient has been having nausea for last 24 hours as well. In the ER she was found to have diverticulitis without abscess or microperforation. Patient states she has been having subjective feel of fever but has not checked her temperature at home. Review of Systems General: Reports: 10 or more systems reviewed and unremarkable except in HPI and below Const: Denies: fever(s), chills, body aches, change in appetite, change in weight, malaise, night sweats, diaphoresis, change in sleep pattern, daytime sleepiness or snoring Eyes: Denies: change in vision, blurry vision, photophobia, eye discomfort or eye discharge ENMT: Denies: throat pain, enlarged tonsils, hoarseness, mouth pain, oral sores, dry mouth, tinnitus, nasal congestion or post nasal drip Card: Denies: chest pain, palpitations, irregular heart rhythm, edema, swelling of feet/ankles, lightheadedness, syncope, pre-syncope, dyspnea on exertion, orthopnea, leg pain with exertion or acrocyanosis Resp: Denies: dyspnea, productive cough, non-productive cough, wheezing, stridor, pain on inspiration, change in phlegm color, hemoptysis or chest congestion GI: Denies: abdominal pain, nausea, vomiting, hematemesis, coffee ground emesis, dysphagia, heartburn, diarrhea, constipation, bloating, GI cramping, change in bowel habits, pain on defecation, hematochezia or melena : Denies: flank pain, dysuria, urinary frequency, urinary urgency, urinary hesitancy, nocturia or hematuria Musc: Denies: neck pain, back pain, extremity pain, joint pain, joint swelling, joint redness, joint stiffness or limited range of motion Neuro: Denies: headache(s), numbness in extremities, weakness in extremities, sensory changes, lack of coordination, difficulty walking, frequent falls, dizziness, vertigo, confusion, Slurred speech present, difficulty communicating thoughts or seizure-like activity Psych: Denies: anxiety, depression, mood swings, panic attacks, hopelessness or irritability Endo: Denies: polyuria, polydipsia, tired all the time, cold intolerance, excessive sweating, flushing or heat intolerance [place]/Lymph: Denies: easy bruising or easy bleeding All/Imm: Denies: tongue swelling, facial swelling or acute wheezing Medications/Allergies Home Medications ?Medication ?Instructions ?Recorded ?Confirmed ?Last Taken ?Type escitalopram oxalate 20 mg tablet 20 mg PO DAILY 07/18/19 01/09/25 01/08/25 History (Lexapro) levothyroxine 100 mcg tablet 100 mcg PO DAILY 07/18/19 01/09/25 01/06/25 History (Synthroid) simvastatin 40 mg tablet 40 mg PO QPM 07/18/19 01/09/25 01/08/25 History tizanidine 4 mg tablet 4 mg PO BEDTIME PRN muscle spasms 05/03/20 01/09/25 05/04/20 History albuterol sulfate 90 mcg/actuation 2 puff inhalation Q4H PRN 12/18/21 01/09/25 Unknown History aerosol inhaler Shortness Of Breath montelukast 10 mg tablet 10 mg PO DAILY #30 tabs 07/02/23 01/09/25 01/08/25 Rx (Singulair) albuterol sulfate 2.5 mg/3 mL 2.5 mg inhalation Q6H PRN 01/09/25 01/09/25 Unknown History (0.083 %) solution for nebulization Shortness Of Breath azelastine 137 mcg (0.1 %) nasal 2 spray intranasal BID PRN 01/09/25 01/09/25 Unknown History spray allergies budesonide-formoterol HFA 160 2 puff inhalation Q12H 01/09/25 01/09/25 01/08/25 History mcg-4.5 mcg/actuation aerosol inhaler (Symbicort) cholecalciferol (vit D3) 1,000 1 tab PO DAILY 01/09/25 01/09/25 01/08/25 History unit-vitamin K2 (MK4) 100 mcg tablet cyanocobalamin (vitamin B-12) 1,000 mcg PO DAILY 01/09/25 01/09/25 01/08/25 History 1,000 mcg tablet (Vitamin B-12) metronidazole 500 mg tablet 500 mg PO Q8H PRN diverticulitis 01/09/25 01/09/25 Unknown History tiotropium bromide 2.5 2.5 puff inhalation QAM 01/09/25 01/09/25 01/08/25 History mcg/actuation mist for inhalation (Spiriva Respimat) triamcinolone acetonide 0.1 % 1 applic topical BID PRN Skin 01/09/25 01/09/25 Unknown History topical cream Irritation Allergies Allergy/AdvReac Type Severity Reaction Status Date / Time metformin Allergy ADR-Diarrhe Verified 12/29/24 08:04 a PFSH Acute PFSH: Medical History (Updated 01/09/25 @ 14:25 by Epi Canela MD) COVID-19 Glaucoma Asthma H/O: hypothyroidism Depression Hyperlipidemia Surgical History (Updated 01/09/25 @ 14:25 by Epi Canela MD) History of cataract surgery Previous back surgery S/P cholecystectomy H/O sinus surgery Social History Smoking and tobacco/nicotine status: never used tobacco/nicotine Second hand smoke exposure: No Alcohol intake: never Substance/Drug Use: never Lives independently: Yes Household members: spouse Housing: House Marital status: Current occupational status: employed Current occupation: Teacher Current occupational exposures/hazards: No Pets and animals: Yes Do you think of yourself as: Straight/Heterosexual Current gender identity: Female Vitals/I&O/Wt Last Vital Signs Temp 98.2 F 01/09/25 10:25 Pulse 88 01/09/25 10:25 Resp 16 01/09/25 10:25 BP 143/89 01/09/25 10:25 Pulse Ox 97 01/09/25 10:25 O2 Del Method Room Air 01/09/25 10:25 Weight last 48 hrs Weight 97.069 kg Physical Exam Narrative: General: No acute distress, AO x3, tired appearing, sick appearing HEENT: PERRLA, pupils bilaterally equal and reactive Chest: Normal vesicular breath sounds, no added sounds, equal good air entry bilaterally CVS: S1-S2 regular, no murmurs, no tachycardia, no gallops, no rubs Abdomen: Soft, tenderness in left lower quadrant, no organomegaly, bowel sounds present Neuro: No focal deficits, no facial deformity, AO x3, power 5/5 in all limbs Data 01/09/25 10:46 01/09/25 10:46 Other Labs: Radiology Impressions Abdomen/Pelvis CT 01/09/25 10:34 IMPRESSION: 1. Acute diverticulitis of the proximal sigmoid colon without perforation or pericolonic abscess 2. Previous cholecystectomy Laboratory Results WBC 11.24 10^3/uL (3.29-11.43) 01/09/25 10:46 RBC 4.61 10^6/uL (3.85-5.65) 01/09/25 10:46 Hgb 13.30 g/dL (11.27-16.99) 01/09/25 10:46 Hct 41.7 % (36-47) 01/09/25 10:46 MCV 90.5 fl (85-98) 01/09/25 10:46 MCH 28.9 pg (27-33) 01/09/25 10:46 MCHC 31.9 g/dL (30-55) 01/09/25 10:46 RDW 14.0 % (12.1-15.1) 01/09/25 10:46 Plt Count 285 10^3/cmm (157-399) 01/09/25 10:46 MPV 10.4 fL (7.4-10.4) 01/09/25 10:46 Neut % (Auto) 75.5 % 01/09/25 10:46 Lymph % (Auto) 15.9 % 01/09/25 10:46 [place] % (Auto) 7.6 % 01/09/25 10:46 Eos % (Auto) 0.4 % 01/09/25 10:46 Baso % (Auto) 0.4 % 01/09/25 10:46 Neut # (Auto) 8.50 10^3/uL (1.8-7.7) H 01/09/25 10:46 Lymph # (Auto) 1.8 10^3/uL (0.8-4.8) 01/09/25 10:46 [place] # (Auto) 0.9 10^3/uL (0.2-0.9) 01/09/25 10:46 Eos # (Auto) 0.0 10^3/uL (0.0-0.8) 01/09/25 10:46 Baso # (Auto) 0.0 10^3/uL (0.0-0.1) 01/09/25 10:46 Nucleated RBC % (auto) 0 % 01/09/25 10:46 Nucleated RBCs # 0.0 /100WBC 01/09/25 10:46 Sodium 137 mmol/L (136-145) 01/09/25 10:46 Potassium 3.8 mmol/L (3.5-5.1) 01/09/25 10:46 Chloride 100 mmol/L (98-107) 01/09/25 10:46 Carbon Dioxide 26 mmol/L (22-29) 01/09/25 10:46 Anion Gap 14.8 (5-19) 01/09/25 10:46 BUN 10 mg/dL (8-23) 01/09/25 10:46 Creatinine 0.6 mg/dL (0.5-0.9) 01/09/25 10:46 GFR Calculation 102.0 mL/min (90-130) 01/09/25 10:46 Glucose 101 mg/dL (65-115) 01/09/25 10:46 Calculated Osmolality 283 mOsm/kg (285-295) L 01/09/25 10:46 Lactic Acid 1.3 mmol/L (0.5-2.2) 01/09/25 10:46 Calcium 8.8 mg/dL (8.5-10.5) 01/09/25 10:46 Total Bilirubin 0.4 mg/dL (0.15-1.2) 01/09/25 10:46 AST 13 U/L (0-32) 01/09/25 10:46 ALT 16 U/L (0-33) 01/09/25 10:46 Alkaline Phosphatase 117 U/L (35-105) H 01/09/25 10:46 Total Protein 7.0 g/dL (6.6-8.7) 01/09/25 10:46 Albumin 4.0 g/dL (3.5-5.2) 01/09/25 10:46 Globulin 3.0 g/dL (1.3-4.6) 01/09/25 10:46 Lipase 25 U/L (13-60) 01/09/25 10:46 Procalcitonin 0.04 ng/mL (0-0.5) 01/09/25 10:46 Urine Color Yellow (Yellow) 01/09/25 11:07 Urine Appearance Clear (CLEAR) 01/09/25 11:07 Urine pH 5.5 (5-7) 01/09/25 11:07 Ur Specific [place] 1.018 (1.005-1.030) 01/09/25 11:07 Urine Protein Negative (Negative) 01/09/25 11:07 Urine Glucose (UA) Negative (Normal) 01/09/25 11:07 Urine Ketones Negative (Negative) 01/09/25 11:07 Urine Blood Trace (Negative) A 01/09/25 11:07 Urine Nitrate Negative (Negative) 01/09/25 11:07 Urine Bilirubin Negative (Negative) 01/09/25 11:07 Urine Urobilinogen 1.0 mg/dL (Negative) 01/09/25 11:07 Ur Leukocyte Esterase Trace (Negative) A 01/09/25 11:07 Urine RBC 0-2 /hpf (0-2) 01/09/25 11:07 Urine WBC 0-5 /hpf (0-5) 01/09/25 11:07 Ur Squamous Epith Cells 0-5 /hpf (0-5) 01/09/25 11:07 Amorphous Sediment Not Reportable 01/09/25 11:07 Urine Bacteria None seen /hpf (NONE) 01/09/25 11:07 Hyaline Casts 0.40 /lpf 01/09/25 11:07 A&P Assessment and plan 1. Diverticulitis: Plan: 59-year-old female with abdominal pain found to have diverticulitis on CT on pelvis with history of recurrent diverticulitis with last episode of diverticulitis with microperforation. Diverticulitis: Conservative treatment. CT abdomen pelvis negative for microperforation or abscess. Clear liquid diet. Check blood culture, stool studies. Empirically start on IV Zosyn. Protonix IV daily, Zofran as needed. Patient will need a colonoscopy as an outpatient. Continue other chronic medications including Lexapro, levothyroxine, simvastatin, tizanidine. History of asthma: DuoNeb every 6 hours as needed. Full code Clear liquid diet Protonix OPD prophylaxis Heparin 5000 evaluated DVT prophylaxis PDMP PDMP Reviewed: Not Reviewed Attestations Medical Necessity Statement*: Admission for the 2 midnights for management of abdominal pain in setting of diverticulitis Diagnoses Diverticulitis K57.92
[2025-01-09] MEDS: metroNIDAZOLE IV 500 MG/100 ML PREMIX 100 MG IV (13:45)
[2025-01-09 14:59] LABS: Estmated Average Glucose 117; Hemoglobin A1C 5.7 % (4.0-6.0)
[2025-01-09] MEDS: piperacillin-tazobactam 3.375 GM in sodium chloride 0.9% (plus) 50 ML IV ×2 (15:11→21:34)
[2025-01-09] MEDS: pantoprazole 40 mg SDV IVP (15:13)
[2025-01-09 15:20] LABS: Iron 53 ug/dL (37-145); Thyroid Stimulating Hormone 4.65 uIU/mL (0.27-4.20); Total Iron Binding Capacity 332 mcg/dl; Unsaturated Iron Binding 279 ug/dL (112-347); Vitamin B12 564 pg/mL (232-1245)
[2025-01-09] MEDS: heparin 5,000 unit/mL INJ 1 mL 5000 UNIT SUBCUT (15:35)
[2025-01-09] MEDS: HYDROcodone-acetaminophen 5-325 mg Tablet 1 TAB PO (18:46)
[2025-01-10] VITALS (15 sets, daily range): BP systolic 104–126; BP diastolic 64–72; PULSE 70–89; RESP 16–91; TEMP 36.8–37.1; O2SAT 86–97
[2025-01-10] MEDS: heparin 5,000 unit/mL INJ 1 mL 5000 UNIT SUBCUT ×2 (01:09→13:39)
[2025-01-10] MEDS: HYDROcodone-acetaminophen 5-325 mg Tablet 1 TAB PO ×4 (01:12→19:04)
[2025-01-10 06:05] LABS: Hematocrit 37.4 % (36-47); Hemoglobin 11.50 g/dL (11.27-16.99); Mean Corpuscular HGB Conc 30.7 g/dL (30-55); Mean Corpuscular Hemoglobin 29.0 pg (27-33); Mean Corpuscular Volume 94.4 fl (85-98); Nucleated Red Blood Cells % 0 %; Platelet Count 241 10^3/cmm (157-399); Red Blood Count 3.96 10^6/uL (3.85-5.65); White Blood Count 10.70 10^3/uL (3.29-11.43)
[2025-01-10] MEDS: piperacillin-tazobactam 3.375 GM in sodium chloride 0.9% (plus) 50 ML IV ×3 (06:16→20:51)
[2025-01-10 06:22] LABS: Alanine Aminotransferase 13 U/L (0-33); Albumin Level 3.3 g/dL (3.5-5.2); Alkaline Phosphatase 103 U/L (35-105); Anion Gap 11.7 (5-19); Aspartate Amino Transferase 10 U/L (0-32); Blood Urea Nitrogen 8 mg/dL (8-23); Calcium 7.9 mg/dL (8.5-10.5); Carbon Dioxide 26 mmol/L (22-29); Chloride 102 mmol/L (98-107); Creatinine Clr Calc Pharmacy 110.6064; Globulin 2.7 g/dL (1.3-4.6); Glucose 110 mg/dL (65-115); Magnesium 2.0 mg/dL (1.7-2.3); Osmolality Calculated 281 mOsm/kg (285-295); Potassium 3.7 mmol/L (3.5-5.1); Sodium 136 mmol/L (136-145); Total Protein 6.0 g/dL (6.6-8.7)
[2025-01-10 06:44] LABS: Cholesterol 139 mg/dL (0-200); HDL Cholesterol 52 mg/dL (60-100); Triglycerides 128 mg/dL (0-150)
[2025-01-10 06:51] LABS: Procalcitonin 0.10 ng/mL (0-0.5)
[2025-01-10] MEDS: pantoprazole 40 mg SDV IVP (13:39)
--- NOTE | 2025-01-10 16:11 | P.PN_ITS ---
Subjective 2 Subjective: Patient was seen this morning, currently alert oriented x 3, following all commands she is passing gas from below has not had a bowel movement she is tolerating her clear liquids, but she continues to have diffuse abdominal pain, tenderness, no fevers, no chills Vitals/I&O/Wt Last Vital Signs Temp 98.6 F 01/10/25 15:22 Pulse 89 01/10/25 15:22 Resp 16 01/10/25 15:22 BP 109/64 01/10/25 15:22 Pulse Ox 92 01/10/25 15:22 O2 Del Method CPAP 01/10/25 15:22 O2 Flow Rate 2 01/10/25 13:49 01/10/25 01/10/25 01/10/25 06:59 14:59 22:59 Intake Total 1890 / 2240 770 / 770 Output Total 1100 / 1400 900 / 900 Balance 790 / 840 770 / 770 -900 / -130 Weight last 48 hrs Weight 97.069 kg Weight 97.069 kg Weight 97.069 kg Physical Exam 2 Const: COMMON NORMALS: no acute distress and patient oriented x3 Resp: COMMON NORMALS: normal respiratory effort, No retractions, No use of accessory muscles and clear to auscultation bilaterally AUSCULTATION: clear to auscultation bilaterally Cardio: COMMON NORMALS: regular rate, regular rhythm, S1 normal heart sound present and S2 normal heart sound present RATE: regular rate RHYTHM: r egular rhythm HEART SOUNDS: S1 normal heart sound present and S2 normal heart sound present GI: OTHER: Abdomen soft, distended, diffuse abdominal tenderness, no guarding, no rebound, no rigidity Extremity: COMMON NORMALS: no pedal edema Neuro: COMMON NORMALS: patient oriented x3, CN's II-XII intact bilaterally and moves all extremities Psych: COMMON NORMALS: mental status grossly normal Data 01/10/25 05:35 01/10/25 05:35 A&P Assessment and plan 1. Diverticulitis: Plan: CT/CT abdomen pelvis w con* [id number] IMPRESSION: 1. Acute diverticulitis of the proximal sigmoid colon without perforation or pericolonic abscess 2. Previous cholecystectomy Plan Clear liquid diet. Check blood culture, stool studies. IV Zosyn Protonix IV daily, Zofran as needed. Serial abdominal exams Continue home medications Lexapro, levothyroxine, simvastatin, tizanidine. History of asthma: DuoNeb every 6 hours as needed. Full code Clear liquid diet Protonix GI prophylaxis Heparin 5000 evaluated DVT prophylaxis PDMP PDMP Reviewed: Not Reviewed Attestations 2 Medical Necessity Statement*: Patient requires hospitalization for diverticulitis Diagnoses Diverticulitis K57.92
[2025-01-10 19:11] LABS: C.Diff PCR (Lab) NEGATIVE (Negative)
[2025-01-11] VITALS (14 sets, daily range): BP systolic 94–118; BP diastolic 53–69; PULSE 67–83; RESP 15–18; TEMP 36.4–37.4; O2SAT 90–98
[2025-01-11] MEDS: heparin 5,000 unit/mL INJ 1 mL 5000 UNIT SUBCUT ×2 (02:13→15:08)
[2025-01-11] MEDS: HYDROcodone-acetaminophen 5-325 mg Tablet 1 TAB PO ×3 (02:14→15:07)
[2025-01-11] MEDS: piperacillin-tazobactam 3.375 GM in sodium chloride 0.9% (plus) 50 ML IV ×2 (04:58→15:08)
[2025-01-11 05:14] LABS: Hematocrit 35.4 % (36-47); Hemoglobin 11.00 g/dL (11.27-16.99); Mean Corpuscular HGB Conc 31.1 g/dL (30-55); Mean Corpuscular Hemoglobin 28.7 pg (27-33); Mean Corpuscular Volume 92.4 fl (85-98); Nucleated Red Blood Cells % 0 %; Platelet Count 225 10^3/cmm (157-399); Red Blood Count 3.83 10^6/uL (3.85-5.65); White Blood Count 8.86 10^3/uL (3.29-11.43)
[2025-01-11 05:51] LABS: Alanine Aminotransferase 12 U/L (0-33); Albumin Level 3.2 g/dL (3.5-5.2); Alkaline Phosphatase 95 U/L (35-105); Anion Gap 11.2 (5-19); Aspartate Amino Transferase 10 U/L (0-32); Blood Urea Nitrogen 4 mg/dL (8-23); Calcium 8.3 mg/dL (8.5-10.5); Carbon Dioxide 28 mmol/L (22-29); Chloride 100 mmol/L (98-107); Creatinine Clr Calc Pharmacy 132.7277; Globulin 2.9 g/dL (1.3-4.6); Glucose 115 mg/dL (65-115); Magnesium 2.2 mg/dL (1.7-2.3); Osmolality Calculated 280 mOsm/kg (285-295); Potassium 3.2 mmol/L (3.5-5.1); Sodium 136 mmol/L (136-145); Total Protein 6.1 g/dL (6.6-8.7)
[2025-01-11] MEDS: ondansetron 2 mg/ML SDV 2 mL 4 MG IVP (08:37)
--- NOTE | 2025-01-11 08:46 | PC.NURSE ---
Patient had a liquid breakfast and vomited approximately 15 minutes after drinking it. Vomit was a reddish brown color due to the grape juice, apple juice and chicken broth patient had.
--- NOTE | 2025-01-11 10:35 | CT_ITS ---
WS: [id number] CT ABDOMEN PELVIS TECHNIQUE: Contrast-enhanced CT of the abdomen and pelvis with coronal and sagittal reformatted images. CLINICAL INFORMATION: abdominal pain, diarrhea, COMPARISON: 01/09/2025 DLP: 1117.[address] scans at [facility] use at least one of these dose optimization techniques: automated exposure control; mA and/or kV adjustment per patient size (includes targeted exams where dose is matched to clinical indication); or iterative reconstruction. FINDINGS: Incidental findings of acute diverticulitis with inflammatory stranding and edema about the proximal sigmoid colon. Development of a small 11 x 10 mm diverticular phlegmon or abscess in the wall of the sigmoid colon. No free air. Surrounding induration and edema appears slightly progressed compared to previous otherwise not significantly changed. Subsegmental atelectasis in the lung bases new from previous. Subsegmental atelectasis in the lingula.No other significant changes. Hepatomegaly. Fatty liver. Cholecystectomy. Small liver cyst. Tiny esophageal hiatal hernia. Fatty atrophy of the pancreas. Celiac and SMA are patent. Normal caliber abdominal aorta. Fat-containing umbilical hernia. Adrenal glands are normal. No hydronephrosis in either kidney. Portal vein and splenic vein are patent. CT/CT abdomen pelvis w con* [id number] IMPRESSION: 1. Persistent findings of acute diverticulitis with slightly increased surroun ding inflammatory stranding and edema but similar to previous 2. Interval development of small phlegmon or abscess in the wall of the sigmoi d colon measuring 10 x 11 mm. This is too small to drain percutaneously. Recomm end interval follow-up. No free air. 3. Subsegmental atelectasis in the lung bases is new from previous. 4. Cholecystectomy. Notified Manuelito Rodriguez MD at 01/11/2025 12:27 PM.
[2025-01-11] MEDS: metoclopramide 5 mg/mL SDV 2 mL IVP ×2 (11:33→18:40)
[2025-01-11] MEDS: iohexol 350 mg/mL 500 mL Btl (per mL) IV (12:02)
--- NOTE | 2025-01-11 14:53 | P.PN_ITS ---
Subjective 2 Subjective: Patient was seen this morning, currently alert oriented x 3, following commands, she is lying her side as she continues to have abdominal pain, she tells me that the abdominal pain has worsened this morning she is also having a migraine, she had a significant vomiting episode this morning she vomited up most of her breakfast, she is passing gas, she did report have a bowel movement overnight, does report diffuse abdominal tenderness, bloating, nausea, we had a detailed discussion with the patient due to her present abdominal pain, nausea will repeat CT scan abdomen pelvis with IV contrast, and consult general surgery based on clinical progress, she is in agreement will keep n.p.o., IV fluids, continue IV antibiotics, she is in agreement Vitals/I&O/Wt Last Vital Signs Temp 98.3 F 01/11/25 11:11 Pulse 81 01/11/25 11:11 Resp 15 01/11/25 11:11 BP 118/69 01/11/25 11:11 Pulse Ox 96 01/11/25 11:11 O2 Del Method Room Air 01/11/25 11:11 O2 Flow Rate 2 01/11/25 08:55 01/10/25 01/11/25 01/11/25 22:59 06:59 14:59 Intake Total 530 / 1300 50 / 1350 360 / 360 Output Total 900 / 900 300 / 1200 450 / 450 Balance -370 / 400 -250 / 150 -90 / -90 Weight last 48 hrs Weight 97.069 kg Weight 97.069 kg Weight 97.069 kg Physical Exam 2 Const: COMMON NORMALS: no acute distress and patient oriented x3 Resp: COMMON NORMALS: normal respiratory effort, No retractions, No use of accessory muscles and clear to auscultation bilaterally AUSCULTATION: clear to auscultation bilaterally Cardio: COMMON NORMALS: regular rate, regular rhythm, S1 normal heart sound present and S2 normal heart sound present RATE: regular rate RHYTHM: r egular rhythm HEART SOUNDS: S1 normal heart sound present and S2 normal heart sound present GI: OTHER: Abdomen is soft, distended, no guarding, rebound, rigidity, does have diffuse abdominal tenderness, good bowel sounds Extremity: COMMON NORMALS: no pedal edema Neuro: COMMON NORMALS: patient oriented x3 Psych: COMMON NORMALS: mental status grossly normal Data 01/11/25 05:00 01/11/25 05:00 Micro: Microbiology 01/10/25 15:50 Stool Lactoferrin - Final Stool A&P Assessment and plan 1. Diverticulitis: Plan: CT/CT abdomen pelvis w con* [id number] IMPRESSION: 1. Acute diverticulitis of the proximal sigmoid colon without perforation or pericolonic abscess 2. Previous cholecystectomy Plan N.p.o. Check blood culture, stool studies. IV Zosyn Protonix IV daily, Zofran as needed. Serial abdominal exams Repeat CT scan abdomen pelvis, consult general surgery Continue home medications Lexapro, levothyroxine, simvastatin, tizanidine. History of asthma: DuoNeb every 6 hours as needed. Full code npo Protonix GI prophylaxis Heparin 5000 evaluated DVT prophylaxis PDMP PDMP Reviewed: Not Reviewed Attestations 2 Medical Necessity Statement*: Patient requires hospitalization for acute diverticulitis Diagnoses Diverticulitis K57.92
[2025-01-11] MEDS: pantoprazole 40 mg SDV IVP (15:08)
--- NOTE | 2025-01-11 15:19 | PM.CONSULT ---
Providers/Reason For Consult Consulting Physician/Specialty*: Meek Pedraza DO, General Surgery Reason for Consult*: Diverticulitis Requesting Physician: Dr Rodriguez Attending Physician: Manuelito Rodriguez MD Primary Care Provider: Marcellus Snowden MD History of Present Illness History of Present Illness Adriana Echeverria is a 59 year old female with CC of abdominal pain over the past week. SHe presented to the hospital with pain and was found to have diverticulitis on CT scan which was treated with Abx- Zosyn and she appeared to be getting better but not is having worsening abdominal pain despite medical treatment. She had a repeat CT scan that showed a small 1x1 cm intramural abscess in the wall of the sigmoid colon that is not amendable to drainage. She is having increased bloating with intermittent nausea and one episode of vomiting this AM after she was started on a clear liquid diet. This is her third episode of diverticulitis over the past several years but she states that the pain is worst with this episode. She has been afebrile and she is adamant against having a colostomy bag at this time. Review of Systems General: Reports: 10 or more systems reviewed and unremarkable except in HPI and below Const: Denies: fever(s), chills, body aches, change in appetite, change in weight, malaise, night sweats, diaphoresis, change in sleep pattern, daytime sleepiness or snoring Eyes: Denies: change in vision, blurry vision, photophobia, eye discomfort or eye discharge ENMT: Denies: throat pain, enlarged tonsils, hoarseness, mouth pain, oral sores, dry mouth, tinnitus, nasal congestion or post nasal drip Card: Denies: chest pain, palpitations, irregular heart rhythm, edema, swelling of feet/ankles, lightheadedness, syncope, pre-syncope, dyspnea on exertion, orthopnea, leg pain with exertion or acrocyanosis Resp: Denies: dyspnea, productive cough, non-productive cough, wheezing, stridor, pain on inspiration, change in phlegm color, hemoptysis or chest congestion GI: Denies: abdominal pain, nausea, vomiting, hematemesis, coffee ground emesis, dysphagia, heartburn, diarrhea, constipation, bloating, GI cramping, change in bowel habits, pain on defecation, hematochezia or melena : Denies: flank pain, dysuria, urinary frequency, urinary urgency, urinary hesitancy, nocturia or hematuria Musc: Denies: neck pain, back pain, extremity pain, joint pain, joint swelling, joint redness, joint stiffness or limited range of motion Neuro: Denies: headache(s), numbness in extremities, weakness in extremities, sensory changes, lack of coordination, difficulty walking, frequent falls, dizziness, vertigo, confusion, Slurred speech present, difficulty communicating thoughts or seizure-like activity Psych: Denies: anxiety, depression, mood swings, panic attacks, hopelessness or irritability Endo: Denies: polyuria, polydipsia, tired all the time, cold intolerance, excessive sweating, flushing or heat intolerance Adelfo/Lymph: Denies: easy bruising or easy bleeding All/Imm: Denies: tongue swelling, facial swelling or acute wheezing Medications/Allergies Home Medications ?Medication ?Instructions ?Recorded ?Confirmed ?Last Taken ?Type escitalopram oxalate 20 mg tablet 20 mg PO DAILY 07/18/19 01/09/25 01/08/25 History (Lexapro) levothyroxine 100 mcg tablet 100 mcg PO DAILY 07/18/19 01/09/25 01/06/25 History (Synthroid) simvastatin 40 mg tablet 40 mg PO QPM 07/18/19 01/09/25 01/08/25 History tizanidine 4 mg tablet 4 mg PO BEDTIME PRN muscle spasms 05/03/20 01/09/25 05/04/20 History albuterol sulfate 90 mcg/actuation 2 puff inhalation Q4H PRN 12/18/21 01/09/25 Unknown History aerosol inhaler Shortness Of Breath montelukast 10 mg tablet 10 mg PO DAILY #30 tabs 07/02/23 01/09/25 01/08/25 Rx (Singulair) albuterol sulfate 2.5 mg/3 mL 2.5 mg inhalation Q6H PRN 01/09/25 01/09/25 Unknown History (0.083 %) solution for nebulization Shortness Of Breath azelastine 137 mcg (0.1 %) nasal 2 spray intranasal BID PRN 01/09/25 01/09/25 Unknown History spray allergies budesonide-formoterol HFA 160 2 puff inhalation Q12H 0801/09/25 01/08/25 History mcg-4.5 mcg/actuation aerosol inhaler (Symbicort) cholecalciferol (vit D3) 1,000 1 tab PO DAILY 01/09/25 01/09/25 01/08/25 History unit-vitamin K2 (MK4) 100 mcg tablet cyanocobalamin (vitamin B-12) 1,000 mcg PO DAILY 01/09/25 01/09/25 01/08/25 History 1,000 mcg tablet (Vitamin B-12) metronidazole 500 mg tablet 500 mg PO Q8H PRN diverticulitis 01/09/25 01/09/25 Unknown History tiotropium bromide 2.5 2.5 puff inhalation QAM 01/09/25 01/09/25 01/08/25 History mcg/actuation mist for inhalation (Spiriva Respimat) triamcinolone acetonide 0.1 % 1 applic topical BID PRN Skin 01/09/25 01/09/25 Unknown History topical cream Irritation Allergies Allergy/AdvReac Type Severity Reaction Status Date / Time avocado Allergy ALGY-Anaphy Verified 01/09/25 21:51 laxis banana Allergy ALGY-Anaphy Verified 01/09/25 21:51 laxis cantaloupe Allergy ALGY-Anaphy Verified 01/09/25 21:51 laxis metformin Allergy ADR-Diarrhe Verified 12/29/24 08:04 a Current Medications Generic Name Dose Route Start Last Admin Trade Name Freq PRN Reason Stop Dose Admin Acetaminophen 650 mg 01/09/25 14:11 01/11/25 15:07 Acetaminophen 325 Mg Tablet PO 650 mg Q6H PRN Administration Mild/Mod Pain Or Temp >/= 101 Hydrocodone Bitart/Acetaminophen 1 tab 01/09/25 14:11 01/11/25 15:07 Hydrocodone-Acetaminophen 5-325 Mg Tablet PO 1 tab Q4H PRN Administration MODERATE TO SEVERE PAIN Albuterol/Ipratropium 3 ml 01/09/25 14:00 01/11/25 14:33 Ipratropium-Albuterol 3 Ml Neb INHALATION Not Given Q6H.RESP WAQAS Escitalopram Oxalate 20 mg 01/10/25 09:00 01/11/25 07:54 Escitalopram 10 Mg Tablet PO 20 mg DAILY WAQAS Administration Heparin Sodium (Porcine) 5,000 unit 01/09/25 14:11 01/11/25 15:08 Heparin 5,000 Unit/Ml Inj 1 Ml SUBCUT 5,000 unit Q12H WAQAS Administration Piperacillin Sod/Tazobactam 50 mls @ 12.5 mls/hr 01/09/25 14:30 01/11/25 15:08 Sod 3.375 gm/ Sodium Chloride IV 12.5 mls/hr Q8H WAQAS Administration Sodium Chloride 1,000 mls @ 100 mls/hr 01/11/25 10:45 01/11/25 11:38 Sodium Chloride 0.9% IV 100 mls/hr .Q10H WAQAS Administration Levothyroxine Sodium 100 mcg 01/10/25 09:00 01/11/25 07:54 Levothyroxine 100 Mcg Tablet PO 100 mcg DAILY WAQAS Administration Metoclopramide HCl 5 mg 01/11/25 10:35 01/11/25 11:33 Metoclopramide 5 Mg/Ml Sdv 2 Ml IVP 5 mg Q6H PRN Administration NAUSEA AND VOMITING Ondansetron HCl 4 mg 01/09/25 14:11 01/11/25 08:37 Ondansetron 2 Mg/Ml Sdv 2 Ml IVP 4 mg Q6H PRN Administration vomiting, or N/V if npo Pantoprazole Sodium 40 mg 01/09/25 14:11 01/11/25 15:08 Pantoprazole 40 Mg Sdv IVP 40 mg Q24H WAQAS Administration Tizanidine HCl 4 mg 01/09/25 21:00 01/10/25 20:51 Tizanidine 4 Mg Tablet PO 4 mg BEDTIME WAQAS Administration PFSH Acute PFSH: Medical History (Updated 01/09/25 @ 14:25 by Epi Canela MD) COVID-19 Glaucoma Asthma H/O: hypothyroidism Depression Hyperlipidemia Surgical History (Updated 01/09/25 @ 14:25 by Epi Canela MD) History of cataract surgery Previous back surgery S/P cholecystectomy H/O sinus surgery Social History Smoking and tobacco/nicotine status: never used tobacco/nicotine Second hand smoke exposure: No Alcohol intake: never Substance/Drug Use: never Lives independently: Yes Household members: spouse Housing: House Marital status: Current occupational status: employed Current occupation: Teacher Current occupational exposures/hazards: No Pets and animals: Yes Do you think of yourself as: Straight/Heterosexual Current gender identity: Female Vitals/I&O/Wt Last Vital Signs Temp 99.3 F 01/11/25 15:12 Pulse 83 01/11/25 15:12 Resp 15 01/11/25 15:12 BP 117/68 01/11/25 15:12 Pulse Ox 97 01/11/25 15:12 O2 Del Method CPAP 01/11/25 15:12 O2 Flow Rate 2 01/11/25 08:55 01/11/25 01/11/25 01/11/25 06:59 14:59 22:59 Intake Total 50 / 1350 410 / 410 Output Total 300 / 1200 450 / 450 Balance -250 / 150 -40 / -40 Weight last 48 hrs Weight 214 lb Weight 214 lb Weight 214 lb Physical Exam Const: COMMON NORMALS: no acute distress and patient oriented x3 Resp: COMMON NORMALS: normal respiratory effort, No retractions, No use of accessory muscles and clear to auscultation bilaterally AUSCULTATION: clear to auscultation bilaterally Cardio: COMMON NORMALS: regular rate, regular rhythm, S1 normal heart sound present and S2 normal heart sound present RATE: regular rate RHYTHM: regular rhythm HEART SOUNDS: S1 normal heart sound present and S2 normal heart sound present GI: OTHER: Abdomen is soft, obese, mildly distended, no guarding, very mild rebound in the LLQ, no rigidity, does have diffuse abdominal tenderness, good bowel sounds Extremity: COMMON NORMALS: no pedal edema Neuro: COMMON NORMALS: patient oriented x3 Psych: COMMON NORMALS: mental status grossly normal Data 01/11/25 05:00 01/11/25 05:00 Micro: Microbiology 01/10/25 15:50 Stool Lactoferrin - Final Stool A&P Assessment and plan 1. Diverticulitis: Plan: I had a long discussion with the patient regarding the risks and benefits of surgery for her. At this time she is adamant about not having a colostomy bag which I told her was a high probability if we operate on her during this acute flare up. We also discussed giving the antibiotics a few more days to try and work which she wanted to try this first before any surgery. Continue IV Zosyn for now and we will perform serial abdominal exams and I tiold her that if she is not any better by we will need to consider surgical intervention for this bout of diverticulitis. She was agreeable to this. NPO for no and continue supportive care. PDMP PDMP Reviewed: Not Reviewed Coding Level of Care Code 32271 Diagnoses Diverticulitis K57.92
--- NOTE | 2025-01-11 16:26 | PC.NURSE ---
Dr. Pedraza in patients room and stated to patient and this nurse, patient can have ice chips.
--- NOTE | 2025-01-11 18:51 | PM.TDS ---
Transfer Summary Providers Date of Admission: 01/09/25 12:09 Date of Discharge/Transfer: 01/11/25 Attending Provider at Admission: Epi Canela MD Attending Provider at Transfer: Manuelito Rodriguez MD Primary Care Provider: Marcellus Snowden MD Transfer Plans: Anticipated date of transfer: 01/11/25. Diagnoses at Discharge Discharge Diagnosis 1. Diverticulitis: Reason for Visit Reason for Visit abd pain, n/d Hospital Course Hospital Course This is a 59-year-old female with past medical history of asthma, hypothyroidism hyperlipidemia, history of diverticulitis with microperforation over a year ago who presents [facility] for abdominal pain Patient was admitted to [facility] for acute diverticulitis, with the proximal sigmoid colon without perforation - Medically managed - With IV antibiotics, IV fluids, Protonix - Placed on clear liquid diet - She remained afebrile, passing gas, but had persistent abdominal pain, nausea - The morning of 01/11/2025 patient had complaints of persistent abdominal pain, nausea, vomiting, but passing gas, she had a bowel movement overnight, afebrile -She was kept n.p.o. -Repeat CT scan shows - CT/CT abdomen pelvis w con* [id number] IMPRESSION: 1. Persistent findings of acute diverticulitis with slightly increased surrounding inflammatory stranding and edema but similar to previous 2. Interval development of small phlegmon or abscess in the wall of the sigmoid colon measuring 10 x 11 mm. This is too small to drain percutaneously. Recommend interval follow-up. No free air. 3. Subsegmental atelectasis in the lung bases is new from previous. 4. Cholecystectomy. - General Surgery was consulted - Patient is adamant about not having colostomy bag, patient preferred a few more days of IV antibiotics before deciding if she wanted to proceed with surgery - Plan was to continue medical management, IV antibiotics, serial abdominal exams, bowel rest, n.p.o. possible surgical intervention on based on clinical progress - I spoke to patient the evening of 01/11/2025, patient wants a second opinion, wants a second opinion from general surgery, wants to be transferred to [facility] - Discussed risk and benefits of transfer to tertiary level center for secondary opinion, patient voiced understanding, all questions answered, shared decision making, agreed to proceed - She was transferred to [facility], Dr. Julian Physical Exam Const: COMMON NORMALS: no acute distress and patient oriented x3 Resp: COMMON NORMALS: normal respiratory effort, No retractions, No use of accessory muscles and clear to auscultation bilaterally AUSCULTATION: clear to auscultation bilaterally Cardio: COMMON NORMALS: regular rate, regular rhythm, S1 normal heart sound present and S2 normal heart sound present RATE: regular rate RHYTHM: regular rhythm HEART SOUNDS: S1 normal heart sound present and S2 normal heart sound present GI: OTHER: Abdomen soft, slightly distended, no guarding, no rebound, rigidity, good bowel sounds in all 4 quadrants, does have diffuse tenderness in all 4 quadrants Extremity: COMMON NORMALS: no pedal edema Neuro: COMMON NORMALS: patient oriented x3 Psych: COMMON NORMALS: mental status grossly normal TS Data Studies Completed and Pending Pending at discharge Category Date Time Status Complete Blood Count w/Auto AM LABS Lab 01/12/25 04:00 Ordered Comprehensive Metabolic Panel AM LABS Lab 01/12/25 04:00 Ordered Magnesium AM LABS Lab 01/12/25 04:00 Ordered OVA and Parasites, Conc and PE Routine Lab 01/09/25 14:11 Received Phosphorus AM LABS Lab 01/12/25 04:00 Ordered Salmonella / Shigella / Campy Routine Lab 01/09/25 14:11 Received Completed Studies During Hospitalization Category Date Time Status CT abdomen pelvis w con* [id number] Routine Cat Scan 01/11/25 10:[address] abdomen pelvis w con* [id number] Stat Cat Scan 01/09/25 10:34 Completed Laboratory Last Values WBC 8.86 10^3/uL (3.29-11.43) 01/11/25 05:00 RBC 3.83 10^6/uL (3.85-5.65) L 01/11/25 05:00 Hgb 11.00 g/dL (11.27-16.99) L 01/11/25 05:00 Hct 35.4 % (36-47) L 01/11/25 05:00 MCV 92.4 fl (85-98) 01/11/25 05:00 MCH 28.7 pg (27-33) 01/11/25 05:00 MCHC 31.1 g/dL (30-55) 01/11/25 05:00 RDW 14.2 % (12.1-15.1) 01/11/25 05:00 Plt Count 225 10^3/cmm (157-399) 01/11/25 05:00 MPV 10.5 fL (7.4-10.4) H 01/11/25 05:00 Neut % (Auto) 78.0 % 01/11/25 05:00 Lymph % (Auto) 13.4 % 01/11/25 05:00 [place] % (Auto) 7.9 % 01/11/25 05:00 Eos % (Auto) 0.1 % 01/11/25 05:00 Baso % (Auto) 0.3 % 01/11/25 05:00 Neut # (Auto) 6.90 10^3/uL (1.8-7.7) 01/11/25 05:00 Lymph # (Auto) 1.2 10^3/uL (0.8-4.8) 01/11/25 05:00 [place] # (Auto) 0.7 10^3/uL (0.2-0.9) 01/11/25 05:00 Eos # (Auto) 0.0 10^3/uL (0.0-0.8) 01/11/25 05:00 Baso # (Auto) 0.0 10^3/uL (0.0-0.1) 01/11/25 05:00 Nucleated RBC % (auto) 0 % 01/11/25 05:00 Nucleated RBCs # 0.0 /100WBC 01/11/25 05:00 Sodium 136 mmol/L (136-145) 01/11/25 05:00 Potassium 3.2 mmol/L (3.5-5.1) L 01/11/25 05:00 Chloride 100 mmol/L (98-107) 01/11/25 05:00 Carbon Dioxide 28 mmol/L (22-29) 01/11/25 05:00 Anion Gap 11.2 (5-19) 01/11/25 05:00 BUN 4 mg/dL (8-23) L 01/11/25 05:00 Creatinine 0.5 mg/dL (0.5-0.9) 01/11/25 05:00 GFR Calculation 125.9 mL/min (90-130) 01/11/25 05:00 Glucose 115 mg/dL (65-115) 01/11/25 05:00 Estimat Average Glucose 117 01/09/25 10:46 Hemoglobin A1c 5.7 % (4.0-6.0) 01/09/25 10:46 Calculated Osmolality 280 mOsm/kg (285-295) L 01/11/25 05:00 Lactic Acid 1.3 mmol/L (0.5-2.2) 01/09/25 10:46 Calcium 8.3 mg/dL (8.5-10.5) L 01/11/25 05:00 Phosphorus 2.8 mg/dL (2.5-4.5) 01/11/25 05:00 Magnesium 2.2 mg/dL (1.7-2.3) 01/11/25 05:00 Iron 53 ug/dL (37-145) 01/09/25 10:46 TIBC 332 mcg/dl 01/09/25 10:46 % Saturation 15.9 % (20-50) L 01/09/25 10:46 Unsat Iron Binding 279 ug/dL (112-347) 01/09/25 10:46 Total Bilirubin 0.4 mg/dL (0.15-1.2) 01/11/25 05:00 AST 10 U/L (0-32) 01/11/25 05:00 ALT 12 U/L (0-33) 01/11/25 05:00 Alkaline Phosphatase 95 U/L (35-105) 01/11/25 05:00 Total Protein 6.1 g/dL (6.6-8.7) L 01/11/25 05:00 Albumin 3.2 g/dL (3.5-5.2) L 01/11/25 05:00 Globulin 2.9 g/dL (1.3-4.6) 01/11/25 05:00 Triglycerides 128 mg/dL (0-150) 01/10/25 05:35 Cholesterol 139 mg/dL (0-200) 01/10/25 05:35 LDL Cholesterol, Calc 61 mg/dL (50-129) 01/10/25 05:35 HDL Cholesterol 52 mg/dL (60-100) L 01/10/25 05:35 LDL/HDL Ratio 1.17 RATIO (0.00-3.22) 01/10/25 05:35 Cholesterol/HDL Ratio 2.67 mg/dL (0.0-4.40) 01/10/25 05:35 Lipase 25 U/L (13-60) 01/09/25 10:46 Vitamin B12 564 pg/mL (232-1245) 01/09/25 10:46 Folate > 20.0 ng/mL (4.8-37.3) 01/10/25 05:35 Procalcitonin 0.10 ng/mL (0-0.5) 01/10/25 05:35 TSH 4.65 uIU/mL (0.27-4.20) H 01/09/25 10:46 Urine Color Yellow (Yellow) 01/09/25 11:07 Urine Appearance Clear (CLEAR) 01/09/25 11:07 Urine pH 5.5 (5-7) 01/09/25 11:07 Ur Specific [place] 1.018 (1.005-1.030) 01/09/25 11:07 Urine Protein Negative (Negative) 01/09/25 11:07 Urine Glucose (UA) Negative (Normal) 01/09/25 11:07 Urine Ketones Negative (Negative) 01/09/25 11:07 Urine Blood Trace (Negative) A 01/09/25 11:07 Urine Nitrate Negative (Negative) 01/09/25 11:07 Urine Bilirubin Negative (Negative) 01/09/25 11:07 Urine Urobilinogen 1.0 mg/dL (Negative) 01/09/25 11:07 Ur Leukocyte Esterase Trace (Negative) A 01/09/25 11:07 Urine RBC 0-2 /hpf (0-2) 01/09/25 11:07 Urine WBC 0-5 /hpf (0-5) 01/09/25 11:07 Ur Squamous Epith Cells 0-5 /hpf (0-5) 01/09/25 11:07 Amorphous Sediment Not Reportable 01/09/25 11:07 Urine Bacteria None seen /hpf (NONE) 01/09/25 11:07 Hyaline Casts 0.40 /lpf 01/09/25 11:07 C. difficile (PCR) Negative (Negative) 01/10/25 15:50 Radiology Impressions Abdomen/Pelvis CT 01/11/25 10:35 IMPRESSION: 1. Persistent findings of acute diverticulitis with slightly increased surrounding inflammatory stranding and edema but similar to previous 2. Interval development of small phlegmon or abscess in the wall of the sigmoid colon measuring 10 x 11 mm. This is too small to drain percutaneously. Recommend interval follow-up. No free air. 3. Subsegmental atelectasis in the lung bases is new from previous. 4. Cholecystectomy. Notified Manuelito Rodriguez MD at 01/11/2025 12:27 PM. Recent Clincial Data Last Vital Signs Temp 99.3 F 01/11/25 16:42 Pulse 83 01/11/25 16:42 Resp 15 01/11/25 16:42 BP 117/68 01/11/25 16:42 Pulse Ox 97 01/11/25 15:12 O2 Del Method CPAP 01/11/25 15:12 O2 Flow Rate 2 01/11/25 08:55 Vital Signs Temp Pulse Resp BP Pulse Ox O2 Del Method O2 Flow Rate 01/11/25 16:42 99.3 F 83 15 117/68 01/11/25 15:12 99.3 F 83 15 117/68 97 CPAP 01/11/25 12:00 98.3 F 81 15 118/69 01/11/25 11:11 98.3 F 81 15 118/69 96 Room Air 01/11/25 09:07 77 01/11/25 08:55 72 18 94 Nasal Cannula 2 01/11/25 08:00 98.2 F 68 16 106/69 01/11/25 07:14 98.2 F 68 16 106/69 95 CPAP Intake & Output/Weight 01/09/25 01/10/25 01/11/25 01/12/25 06:59 06:59 06:59 06:59 Intake Total 2240 / 2240 1350 / 1350 470 / 470 Output Total 1400 / 1400 1200 / 1200 450 / 450 Balance 840 / 840 150 / 150 20 / 20 Weight 97.069 kg 97.069 kg Vitals Last Vital Signs Temp 99.3 F 01/11/25 16:42 Pulse 83 01/11/25 16:42 Resp 15 01/11/25 16:42 BP 117/68 01/11/25 16:42 Pulse Ox 97 01/11/25 15:12 O2 Del Method CPAP 01/11/25 15:12 O2 Flow Rate 2 01/11/25 08:55 TS Medications Medications Acetaminophen (Acetaminophen 325 Mg Tablet) 650 mg PO Q6H PRN PRN Reason: Mild/Mod Pain Or Temp >/= 101 Last Admin: 01/11/25 15:07 Dose: 650 mg Albuterol/Ipratropium (Ipratropium-Albuterol 3 Ml Neb) 3 ml INHALATION Q6H.RESP [facility] Last Admin: 01/11/25 14:33 Dose: Not Given Docusate Sodium (Docusate Sodium 100 Mg Capsule) 100 mg PO BID@0500,1700 [facility] Last Admin: 01/11/25 18:40 Dose: 100 mg Escitalopram Oxalate (Escitalopram 10 Mg Tablet) 20 mg PO DAILY [facility] Last Admin: 01/11/25 07:54 Dose: 20 mg Heparin Sodium (Porcine) (Heparin 5,000 Unit/Ml Inj 1 Ml) 5,000 unit SUBCUT Q12H [facility] Last Admin: 01/11/25 15:08 Dose: 5,000 unit Hydromorphone HCl (Hydromorphone 0.5 Mg/0.5 Ml Inj) 0.5 mg IVP Q6H PRN PRN Reason: PAIN Piperacillin Sod/Tazobactam (Sod 3.375 gm/ Sodium Chloride) 50 mls @ 12.5 mls/hr IV Q8H [facility] Last Admin: 01/11/25 15:08 Dose: 12.5 mls/hr Sodium Chloride (Sodium Chloride 0.9%) 1,000 mls @ 100 mls/hr IV .Q10H [facility] Last Admin: 01/11/25 11:38 Dose: 100 mls/hr Lactulose (Lactulose Oral Liq 20 Gm/30 Ml Udc) 10 gm PO DAILY PRN; Protocol PRN Reason: Constipation (see protocol) Levothyroxine Sodium (Levothyroxine 100 Mcg Tablet) 100 mcg PO DAILY [facility] Last Admin: 01/11/25 07:54 Dose: 100 mcg Magnesium Hydroxide (Magnesium Hydroxide 30 Ml Udc) 30 ml PO DAILY PRN; Protocol PRN Reason: Constipation (see protocol) Metoclopramide HCl (Metoclopramide 5 Mg/Ml Sdv 2 Ml) 5 mg IVP Q6H PRN PRN Reason: NAUSEA AND VOMITING Last Admin: 01/11/25 18:40 Dose: 5 mg Ondansetron HCl (Ondansetron 2 Mg/Ml Sdv 2 Ml) 4 mg IVP Q6H PRN PRN Reason: vomiting, or N/V if npo Last Admin: 01/11/25 08:37 Dose: 4 mg Pantoprazole Sodium (Pantoprazole 40 Mg Sdv) 40 mg IVP Q24H [facility] Last Admin: 01/11/25 15:08 Dose: 40 mg Tizanidine HCl (Tizanidine 4 Mg Tablet) 4 mg PO BEDTIME [facility] Last Admin: 01/10/25 20:51 Dose: 4 mg Tramadol HCl (Tramadol 50 Mg Tablet) 50 mg PO Q6H PRN PRN Reason: MODERATE PAIN Discontinued Medications Hydrocodone Bitart/Acetaminophen (Hydrocodone-Acetaminophen 5-325 Mg Tablet) 1 tab PO Q4H PRN PRN Reason: MODERATE TO SEVERE PAIN Last Admin: 01/11/25 15:07 Dose: 1 tab Docusate Sodium (Docusate Sodium 100 Mg Capsule) 100 mg PO BID [facility] Last Admin: 01/11/25 07:54 Dose: 100 mg Hydromorphone HCl (Hydromorphone 0.5 Mg/0.5 Ml Inj) 1 mg IVP ONCE ONE Stop: 01/09/25 10:35 Last Admin: 01/09/25 11:03 Dose: 1 mg Hydromorphone HCl (Hydromorphone 0.5 Mg/0.5 Ml Inj) 1 mg IVP ONCE ONE Stop: 01/09/25 12:27 Last Admin: 01/09/25 12:31 Dose: 1 mg Ciprofloxacin/Dextrose (Cipro) 400 mg in 200 mls @ 200 mls/hr IV ONCE ONE; Protocol Stop: 01/09/25 12:48 Last Infusion: 01/09/25 13:54 Dose: Infused Metronidazole (Flagyl Iv) 500 mg in 100 mls @ 100 mls/hr IV ONCE ONE Stop: 01/09/25 12:48 Last Infusion: 01/09/25 20:54 Dose: Infused Sodium Chloride (Sodium Chloride 0.9%) 1,000 mls @ 75 mls/hr IV .[id number] [facility] Stop: 01/10/25 03:30 Last Infusion: 01/10/25 06:30 Dose: Infused Iohexol (Iohexol 350 Mg/Ml 500 Ml Btl (Per Ml)) 0 ml IV ONCE ONE Stop: 01/09/25 11:27 Last Admin: 01/09/25 11:26 Dose: 100 ml Iohexol (Iohexol 350 Mg/Ml 500 Ml Btl (Per Ml)) 0 ml IV ONCE ONE Stop: 01/11/25 12:03 Last Admin: 01/11/25 12:02 Dose: 100 ml Morphine Sulfate (Morphine 4 Mg/Ml Sdv 1 Ml) 2 mg IVP Q4H PRN PRN Reason: SEVERE PAIN Ondansetron HCl (Ondansetron 2 Mg/Ml Sdv 2 Ml) 4 mg IVP ONCE ONE Stop: 01/09/25 10:35 Last Admin: 01/09/25 11:01 Dose: 4 mg Potassium Chloride (Potassium Chloride Er 20 Meq Tablet) 40 meq PO ONCE ONE Stop: 01/11/25 08:45 Last Admin: 01/11/25 09:45 Dose: 40 meq Allergies avocado Allergy (Verified 01/09/25 21:51) ALGY-Anaphylaxis banana Allergy (Verified 01/09/25 21:51) ALGY-Anaphylaxis cantaloupe Allergy (Verified 01/09/25 21:51) ALGY-Anaphylaxis metformin Allergy (Verified 12/29/24 08:04) ADR-Diarrhea Home Medications escitalopram oxalate 20 mg tablet (Lexapro) 20 mg PO DAILY 07/18/19 [History Confirmed 01/09/25] levothyroxine 100 mcg tablet (Synthroid) 100 mcg PO DAILY 07/18/19 [History Confirmed 01/09/25] simvastatin 40 mg tablet 40 mg PO QPM 07/18/19 [History Confirmed 01/09/25] tizanidine 4 mg tablet 4 mg PO BEDTIME PRN muscle spasms 05/03/20 [History Confirmed 01/09/25] albuterol sulfate 90 mcg/actuation aerosol inhaler 2 puff inhalation Q4H PRN Shortness Of Breath 12/18/21 [History Confirmed 01/09/25] montelukast 10 mg tablet (Singulair) 10 mg PO DAILY #30 tabs 07/02/23 [Rx Confirmed 01/09/25] albuterol sulfate 2.5 mg/3 mL (0.083 %) solution for nebulization 2.5 mg inhalation Q6H PRN Shortness Of Breath 01/09/25 [History Confirmed 01/09/25] azelastine 137 mcg (0.1 %) nasal spray 2 spray intranasal BID PRN allergies 01/09/25 [History Confirmed 01/09/25] budesonide-formoterol HFA 160 mcg-4.5 mcg/actuation aerosol inhaler (Symbicort) 2 puff inhalation Q12H 01/09/25 [History Confirmed 01/09/25] cholecalciferol (vit D3) 1,000 unit-vitamin K2 (MK4) 100 mcg tablet 1 tab PO DAILY 01/09/25 [History Confirmed 01/09/25] cyanocobalamin (vitamin B-12) 1,000 mcg tablet (Vitamin B-12) 1,000 mcg PO DAILY 01/09/25 [History Confirmed 01/09/25] metronidazole 500 mg tablet 500 mg PO Q8H PRN diverticulitis 01/09/25 [History Confirmed 01/09/25] tiotropium bromide 2.5 mcg/actuation mist for inhalation (Spiriva Respimat) 2.5 puff inhalation QAM 01/09/25 [History Confirmed 01/09/25] triamcinolone acetonide 0.1 % topical cream 1 applic topical BID PRN Skin Irritation 01/09/25 [History Confirmed 01/09/25] Discharge Plan Discharge Patient Disposition: Home Condition: Stable Prescriptions: No Action simvastatin 40 mg tablet 40 mg PO QPM levothyroxine [Synthroid] 100 mcg tablet 100 mcg PO DAILY escitalopram oxalate [Lexapro] 20 mg tablet 20 mg PO DAILY albuterol sulfate 90 mcg/actuation HFA aerosol inhaler 2 puff inhalation Q4H PRN (Reason: Shortness Of Breath) montelukast [Singulair] 10 mg tablet 10 mg PO DAILY Qty: 30 3RF tizanidine 4 mg tablet 4 mg PO BEDTIME PRN (Reason: muscle spasms) metronidazole 500 mg tablet 500 mg PO Q8H PRN (Reason: diverticulitis) albuterol sulfate 2.5 mg /3 mL (0.083 %) solution for nebulization 2.5 mg inhalation Q6H PRN (Reason: Shortness Of Breath) triamcinolone acetonide 0.1 % cream 1 applic topical BID PRN (Reason: Skin Irritation) azelastine 137 mcg (0.1 %) spray,non-aerosol 2 spray intranasal BID PRN (Reason: allergies) budesonide-formoterol [Symbicort] 160-4.5 mcg/actuation HFA aerosol inhaler 2 puff inhalation Q12H Spiriva Respimat 2.5 mcg/actuation mist 2.5 puff inhalation QAM cyanocobalamin (vitamin B-12) [Vitamin B-12] 1,000 mcg Tablet 1,000 mcg PO DAILY vitamin D3-vitamin K2 (MK4) 1,000-100 unit-mcg Tablet 1 tab PO DAILY Referrals: Marcellus Snowden MD [Primary Care Provider, [facility]] Patient Instructions: Opioid Safety, Patient Portal & Cora Instructions Transfer Attestations Time Spent in Transfer Care: greater than 30 min Quality Metrics Clinical Quality Measures [ No reported AMI, CVA or VTE this stay] Coding Level of Care Code Acute Code for Chg Fwd Diagnoses Diverticulitis K57.92
--- NOTE | 2025-01-11 19:42 | PC.NURSE ---
Called report to Valentine Joshi at [facility] at 194.
--- OUTSIDE RECORDS SUMMARY | 2025-01-12 07:55 | XMS_ITS | Encounter Summary ---
Author Organization [facility] Address [address] [place] [address] Care Team Providers Care Mixing Machine Feeder Name Role Phone Unavailable Primary Care Provider Unavailabl e Reason for Referral * Outpatient Services (Routine) - Closed Specialty Diagnoses / Procedures Referred By Contac t Referred To Contact Diagnoses Low back pain Sciatica Procedures MRI LUMBAR WO CONTRAST Marcellus Snowden MD [address] [address] Phone: tel: fax: Referral ID Status Reason Start Date Expiration Date Visits Re quested Visits Authorized [id number] Closed 10/14/2012 11/14/2013 1 1 Encounter Details Date Type Department Care Team (Late st Contact Info) Description 10/14/2012 Ancillary Orders [facility] Centralized Scheduling [address] [facility] [address] [place] [address] Marcellus Snowden MD [address] [address] Low back pain (Primary Dx); Sciatica Social History Tobacco Use Types Packs/Day Years Used Date Smoking Tobacco: Never Assessed Comments Unknown Sex and Gender Information Value Date Recorded Sex Assigned at Not on file 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 ama - uploaded from [facility] - Narrative Procedure Note Alvin Cruz MD [...] nerve root compression. ama - uploaded from [facility] - us Marcellus Snowden MD MR ORDERABLES Final Result documented in this encounter Visit Diagnoses Diagnosis Low back pain- Primary Lumbago Sciatica Low back pain Lumbago Sciatica documented in this encounter
--- OUTSIDE RECORDS SUMMARY | 2025-01-12 07:55 | XMS_ITS | Clinical Summary ---
Author Organization [facility] Address [address] Jalloh: [place] [address] Care Team Providers Care Window Repairer Name Role Phone Marcellus Snowden MD Primary Care Provider [phone] Allergies Active Allergy Reactions Criticality Noted Date [...] problems Immunizations Immunization Administration Dates Next Due ([employer])(12 YR UP) COVID-19 VACCINE - EMERGENCY USE AUTHORIZATION, MRNA, [id number](PF) 30 MCG/0.3 ML IM SUSP 01/15/2021,12/25/2020 Family [...] PM CDT Legal Sex Female 5:18 PM COMMUNICATIONS DESIGNER Gender Identity Female 08/20/2023 12:25 PM CDT Sexual Orientation Straight 08/20/2023 12 :25 PM CDT Last Filed Vital Signs Vital Sign Reading Time Taken Comments Blood Pressure 118/76 08/06/2023 11:35 AM COMMUNICATIONS DESIGNER Pulse 76 08/06/2023 11:35 AM COMMUNICATIONS DESIGNER Temperature - - Respiratory Rate 16 08/06/2023 11:35 AM COMMUNICATIONS DESIGNER Oxygen Saturation 97% 08/06/2023 11:35 AM COMMUNICATIONS DESIGNER Inhaled Oxygen Concentration - - Weight 90.7 kg (200 lb) 08/04/2023 8:10 AM COMMUNICATIONS DESIGNER Height 160 cm (5' 3 ) 08/04/2023 8:10 AM COMMUNICATIONS DESIGNER Body Mass Index 35.43 08/04/2023 8:10 AM COMMUNICATIONS DESIGNER Plan of Treatment Health Maintenance Due Date [...] Comments COLONOSCOPY REPORT 08/06/2023 11 :27 AM COMMUNICATIONS DESIGNER from Last 3 Months or Most Recently Relevant to Health Maintenance Results * COLONOSCOPY REPORT (08/06/2023 11:27 AM COMMUNICATIONS DESIGNER) Narrative Procedure Note Kurtis Manuel MD - 08/06/2023 11:27 AM CST [facility] [place] GI Patient Name: Itzel Echeverria Procedure Date: [...] bowel preparation was evaluated using the BBPS ([place] Bowel Preparation Scale) with scores of: Right [...] Scope Out: 11:18:11 AM [address] [place] Kurtis Manuel MD GI PROCEDURE ORDERABLES Final Result from Last 3 Months or Most Recently Relevant to Health Maintenance Insurance [facility] Advance Directives For more information, please contact: [phone] * Full Code (Latest Code Status on File) Date Activated Date Inactivated Comments 08/06/2023 10:44 AM 08/06/2023 1:52 PM Care Teams Window Repairer Relationship Specialty Start Date End Date Marcellus Snowden MD [address] [phone] PCP - General Family Practice 12/25/20
--- OUTSIDE RECORDS SUMMARY | 2025-01-12 07:55 | XMS_ITS | Clinical Summary ---
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
== END 2025-01-11 20:25 | disposition short-term general hospital (02) | DRG 392 ==
LOC: ER 11:52 → MEDSURG 01-10 05:58
PROVIDERS: Admitting Provider Student in an Organized Health Care Education/Training Program; Emergency Provider Emergency Medicine; PCP Family Medicine; Visit Provider Family Medicine
DX: K57.20 Diverticulitis of large intestine with perforation and abscess without bleeding (principal); J45.909 Unspecified asthma, uncomplicated; E03.9 Hypothyroidism, unspecified; E78.5 Hyperlipidemia, unspecified; Z79.899 Other long term (current) drug therapy; Z86.14 Personal history of Methicillin resistant Staphylococcus aureus infection; H40.9 Unspecified glaucoma; F32.A Depression, unspecified; E66.9 Obesity, unspecified; Z68.37 Body mass index [BMI] 37.0-37.9, adult
CPT/HCPCS: 36415; 74177; 80053; 80061; 81001; 82607; 82746; 83036; 83540; 83550; 83605; 83630; 83690; 83735; 84100; 84145; 84443; 85025; 87045; 87177; 87209; 87427; 87449; 87493; 94640; 94664; 96365; 96367; 96372; 96375; 99285; J0744; J1171; J1644; J2405; J2470; J2543; J2765; J3490; J7030; J9999